=== PATIENT | female | born 2000 | race Caucasian/White ===

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

== ENCOUNTER → 2021-03-28 10:12 | Outpatient (CLI) | payer OTHER, MEDICAID, SELFPAY ==
[2021-03-28 12:48] LABS: Add Manual Diff / Slide Review NO; Basophils Absolute Auto 0 /uL (0-100); Basophils Percent Auto 0.3 % (0-2); Eosinophils Absolute Auto 0 /uL (0-450); Eosinophils Percent Auto 0.3 % (2-4); Hematocrit 37.4 % (36-46); Hemoglobin 12.9 g/dL (12.0-16.0); Lymphocytes Absolute Auto 3100 /uL (1100-4500); Lymphocytes Percent Auto 21.5 % (25-40); Mean Corpuscular HGB Conc 34.4 % (30-36); Mean Corpuscular Hemoglobin 29.3 PG (26-34); Mean Corpuscular Volume 85.3 fL (80-100); Monocytes Absolute Auto 600 /uL (0-900); Monocytes Percent Auto 4.4 % (3-14); Neutrophils Absolute Auto 10600 /uL (1500-7000); Neutrophils Percent Auto 73.5 % (50-75); Platelet Count 250 X10^3/uL (150-400); Red Blood Cell Count 4.39 X10^6/uL (4.0-5.2); Red Cell Distribution Width 12.9 % (11.6-14.8); White Blood Cell Count 14.5 X10^3/uL (4.5-11.0)
[2021-03-28 12:51] LABS: Appearance Urine UA SL CLOUDY; Bilirubin Urine UA NEGATIVE (NEGATIVE); Color Urine UA YELLOW; Glucose Urine UA NEGATIVE (Negative); Ketones Urine UA 3+ (NEGATIVE); Leukocyte Esterase Urine UA 1+ (NEGATIVE); Nitrite Urine UA NEGATIVE (Negative); Occult Blood Urine UA TRACE-INTACT (Negative); Protein Urine UA NEGATIVE (Negative); Urobilinogen Urine UA 0.2 E.U./dL (0.2)
[2021-03-28 13:05] LABS: RBC Urine 1-5/HPF (0-5/HPF); WBC Urine 5-10/HPF (0-5/HPF)
[2021-03-28 13:06] LABS: Amorphous Sediment Urine 1+; Bacteria Urine Many (>30); Mucus Urine 1+ (Negative); Squamous Epithelial Cell Urine 5-10 /HPF (0-5/HPF)
[2021-03-28 15:51] LABS: Hepatitis B Surface Antigen NEGATIVE s/c (NEGATIVE); Rubella Antibody IgG 51.5 IU/mL (>15)
[2021-03-28 16:06] LABS: HIV 1 & 2 Ab/Ag 4th Gen Combo NEGATIVE (NEGATIVE); Hep C Virus Ab w/Reflex Quant NEGATIVE s/c (NEGATIVE)
[2021-03-28 16:11] LABS: Ur Creatinine Normal (Normal); Ur Specific Gravity Normal (Normal); Urine Tetrahydrocannabinol Positive (Negative); Urine pH Normal (Normal)
[2021-03-28 16:12] LABS: UR Morphine/Opiate cutoff 300 Negative (Negative); Urine Amphetamines Negative (Negative); Urine Barbiturates Negative (Negative); Urine Benzodiazepines Negative (Negative); Urine Cocaine Negative (Negative); Urine MDMA Negative (Negative); Urine Methadone Negative (Negative); Urine Methamphetamines Negative (Negative); Urine Oxycodone Negative (Negative); Urine Phencyclidine Negative (Negative); Urine Tricyclic Antidepressant Negative (Negative)
[2021-03-29 04:40] LABS: Varicella IgG Antibody <135 index (Immune >165)
[2021-03-29 06:41] LABS: RPR Screen Non Reactive (Non Reactive)
== END ==
PROVIDERS: Referring Provider Obstetrics & Gynecology; Visit Provider Obstetrics & Gynecology
DX: Z34.80 Encounter for supervision of other normal pregnancy, unspecified trimester (principal); F19.11 Other psychoactive substance abuse, in remission
CPT/HCPCS: 36415; 80055; 80305; 81003; 81015; 86787; 86803; 86850; 86900; 86901; 87086; 87389

== ENCOUNTER → 2021-04-03 12:17 | Outpatient (CLI) | payer OTHER, MEDICAID, SELFPAY ==
[2021-04-03 12:39] LABS: UR Morphine/Opiate cutoff 300 Negative (Negative); Ur Creatinine Normal (Normal); Ur Specific Gravity Normal (Normal); Urine Amphetamines Negative (Negative); Urine Barbiturates Negative (Negative); Urine Benzodiazepines Negative (Negative); Urine Cocaine Negative (Negative); Urine MDMA Negative (Negative); Urine Methadone Negative (Negative); Urine Methamphetamines Negative (Negative); Urine Oxycodone Negative (Negative); Urine Phencyclidine Negative (Negative); Urine Tetrahydrocannabinol Negative (Negative); Urine Tricyclic Antidepressant Negative (Negative); Urine pH Normal (Normal)
[2021-04-03 14:02] LABS: Urine N gonorrhoeae NOT DETECTED
[2021-04-03 14:09] LABS: Urine Chlamydia NOT DETECTED
== END ==
PROVIDERS: Visit Provider Obstetrics & Gynecology
DX: Z34.81 Encounter for supervision of other normal pregnancy, first trimester (principal); Z3A.13 13 weeks gestation of pregnancy
CPT/HCPCS: 80305; 87491; 87591

== ENCOUNTER → 2021-05-01 11:39 | Outpatient (CLI) | payer OTHER, MEDICAID, SELFPAY ==
[2021-05-03 20:38] LABS: AFP, Serum 31.8 ng/mL (.); Estriol, Free 1.47 ng/mL (.); Inhibin A, Dimeric 327.05 pg/mL (.); Inhibin A, MoM 2.41 (.); Maternal Ethnicity Caucasian (.); Maternal Weight 190 lbs (.); Number of Fetuses No (.); OSBR Risk 1 IN 10000 (.); Results Report (.); Test Results *Screen Negative* (.); hCG, Serum 91792 mIU/mL (.)
== END ==
PROVIDERS: Referring Provider Obstetrics & Gynecology; Visit Provider Obstetrics & Gynecology
DX: Z34.82 Encounter for supervision of other normal pregnancy, second trimester (principal); Z3A.17 17 weeks gestation of pregnancy
CPT/HCPCS: 36415; 82105; 82677; 84702; 86336

== ENCOUNTER → 2021-05-29 12:23 | Outpatient (CLI) | payer OTHER, MEDICAID, SELFPAY ==
[2021-05-29 12:51] LABS: UR Morphine/Opiate cutoff 300 Negative (Negative); Ur Creatinine Normal (Normal); Ur Specific Gravity Normal (Normal); Urine Amphetamines Negative (Negative); Urine Barbiturates Negative (Negative); Urine Benzodiazepines Negative (Negative); Urine Cocaine Negative (Negative); Urine MDMA Negative (Negative); Urine Methadone Negative (Negative); Urine Methamphetamines Negative (Negative); Urine Oxycodone Negative (Negative); Urine Phencyclidine Negative (Negative); Urine Tetrahydrocannabinol Negative (Negative); Urine Tricyclic Antidepressant Negative (Negative); Urine pH Normal (Normal)
== END ==
PROVIDERS: Visit Provider Obstetrics & Gynecology
DX: F11.11 Opioid abuse, in remission (principal); Z87.898 Personal history of other specified conditions; Z34.82 Encounter for supervision of other normal pregnancy, second trimester
CPT/HCPCS: 80305

== ENCOUNTER → 2021-06-26 11:20 | Outpatient (CLI) | payer OTHER, MEDICAID, SELFPAY ==
[2021-06-26 14:30] LABS: Hematocrit 31.6 % (36-46); Hemoglobin 10.9 g/dL (12.0-16.0)
[2021-06-26 15:36] LABS: GTT (PREG) 1 Hour PP 50gm Dose 113 mg/dL (76-139)
== END ==
PROVIDERS: Referring Provider Obstetrics & Gynecology; Visit Provider Obstetrics & Gynecology
DX: Z34.02 Encounter for supervision of normal first pregnancy, second trimester (principal); Z3A.25 25 weeks gestation of pregnancy
CPT/HCPCS: 36415; 82950; 85014; 85018

== ENCOUNTER 2021-07-05 15:16 | Observation (INO) | payer OTHER, MEDICAID, SELFPAY ==
[2021-07-05 15:48] VITALS: BP 127/69; PULSE 114; RESP 16; TEMP 36.4; O2SAT 97; BMI 35.3
--- NOTE | 2021-07-05 16:03 | PC.NURSE ---
Pt normotensive 120s/ HR 114. Urine obtained. [facility] RN auscultated FHR x 2 min--150's accels noted. No decels. Pt reports + movement, denies leaking of fluid or vaginal bleeding. Lab to draw.
[2021-07-05 16:49] LABS: Appearance Urine UA CLOUDY; Bilirubin Urine UA NEGATIVE (NEGATIVE); Color Urine UA YELLOW; Glucose Urine UA NEGATIVE (Negative); Ketones Urine UA TRACE (NEGATIVE); Leukocyte Esterase Urine UA 3+ (NEGATIVE); Nitrite Urine UA NEGATIVE (Negative); Occult Blood Urine UA 1+ (Negative); Protein Urine UA TRACE (Negative); Specific Gravity Urine UA 1.015 (1.000-1.035); Urobilinogen Urine UA 0.2 E.U./dL (0.2)
[2021-07-05 16:51] LABS: pH Urine UA 7.5 (4.5-8.0)
[2021-07-05 17:06] LABS: Squamous Epithelial Cell Urine 5-10 /HPF (0-5/HPF)
[2021-07-05 17:07] LABS: Bacteria Urine Many (>30); Culture Indicated Urine Specimen Cultured; RBC Urine None Seen (0-5/HPF); WBC Urine 5-10/HPF (0-5/HPF)
[2021-07-05 17:33] LABS: Add Manual Diff / Slide Review NO; Basophils Absolute Auto 0 /uL (0-100); Basophils Percent Auto 0.3 % (0-2); Eosinophils Absolute Auto 100 /uL (0-450); Eosinophils Percent Auto 0.4 % (2-4); Hematocrit 32.9 % (36-46); Hemoglobin 11.3 g/dL (12.0-16.0); Lymphocytes Absolute Auto 2600 /uL (1100-4500); Lymphocytes Percent Auto 16.4 % (25-40); Mean Corpuscular HGB Conc 34.4 % (30-36); Mean Corpuscular Hemoglobin 30.4 PG (26-34); Mean Corpuscular Volume 88.3 fL (80-100); Monocytes Absolute Auto 800 /uL (0-900); Monocytes Percent Auto 5.1 % (3-14); Neutrophils Absolute Auto 12400 /uL (1500-7000); Neutrophils Percent Auto 77.8 % (50-75); Platelet Count 281 X10^3/uL (150-400); Red Blood Cell Count 3.73 X10^6/uL (4.0-5.2); Red Cell Distribution Width 13.1 % (11.6-14.8); White Blood Cell Count 15.9 X10^3/uL (4.5-11.0)
[2021-07-05 17:40] LABS: Alanine Aminotransferase 37 IU/L (<35); Albumin 3.9 g/dL (3.5-5.0); Albumin Globulin Ratio 1.2 (1.0-2.8); Alkaline Phosphatase 66 U/L (38-126); Aspartate Aminotransferase 35 IU/L (14-36); BUN Creatinine Ratio 13.1 (6-22); Bilirubin Total 0.3 mg/dL (0.2-1.3); Blood Urea Nitrogen 8 mg/dL (7-17); Calcium 9.5 mg/dL (8.4-10.2); Carbon Dioxide 24 mmol/L (22-32); Chloride 104 mmol/L (98-107); Estimated Glomerular Filt Rate > 60 mL/min (>60); Globulin 3.2 g/dL (1.7-4.1); Glucose 104 mg/dL (70-100); HEMOLYSIS < 15 (0-50); Potassium 3.9 mmol/L (3.4-5.1); Sodium 136 mmol/L (137-145); Total Protein 7.1 g/dL (6.3-8.2); Uric Acid 3.8 mg/dL (2.5-6.2)
[2021-07-05 17:44] LABS: Creatinine Urine Random 68.7 mg/dL; Protein (Total) Urine Random 16 mg/dL (0-12); Protein Creatinine Ratio Urine 0.23 GRAM/24H
--- NOTE | 2021-07-05 17:46 | PC.NURSE ---
[facility] in ED to repeat US. NAD. tolerating well
--- NOTE | 2021-07-05 18:45 | PC.NURSE ---
Per Yuni Zapata RNC, [facility], EFM placed at 1736 and removed at 1836. Baseline fhr 150 with moderate variability, accels up to 170. Appropriate for EGA and reactive NST. Telephone call to Dr. Burns, updated on fhr tracing. Note written by Aram Zapata, RNC
--- NOTE | 2021-07-05 19:52 | P.TNLD_ITS ---
Visit Information Visit Information Date of evaluation: 07/05/21 Primary OB Provider: Lon Whittington On-call OB Provider: Bambi Burns Reason for Evaluation: Yes other Comments/Additional reasons for admission: This patient is a 21 year at 26 weeks and 5 days gestation with complaints of headache the last 3 days. She feels she is hydrating well. She has taken 1 regular strength Tylenol without improvement in her headache. She has had some lower extremity edema but denies vision changes. She had some right-sided pain which has now resolved. Denies contractions, leaking or bleeding and reports good movement. Denies pain with urination or fevers. Vital Signs Vital Signs: Vital Signs - 8 hr 07/05/21 15:48 Temperature 97.5 F L Pulse Rate 114 H Respiratory Rate 16 Blood Pressure 127/69 Pulse Oximetry 97 PFSH Medical History Anemia Anxiety Depression Gonorrhea (~2020) Hypertension (~2017) Manic-depression Peripheral neuropathy (~2017) Substance abuse (~2015) Vision disorder Surgical History Anesthesia History of eye surgery Family History Father Diabetes mellitus Hypertension Mental health problem Mother Mental health problem Brother Mental health problem Sister Mental health problem Grandfather Cancer Grandmother Diabetes mellitus Hypertension Hyperlipidemia Social History marital status: unmarried,single details: father will be involved number of children: 0 household members: none housing: other (snf type apartment - had been homeless) pets and animals: No education level: other (to 11th grade) occupational status: unemployed seatbelt use: always water heater temp set < 120 deg: Yes working smoke detector in home: Yes fire extinguisher in home: Yes carbon monox detector in home: Yes firearms in home: No do you feel safe at home: Yes Smoking Status: Former smoker quit status: quit date established (04/17/21) second hand exposure: Yes (will try to avoid this in the future) alcohol intake: former substance use type: marijuana (using now), crack/cocaine (non since ), heroin (not since ), hallucinogens, opiates (2020 - before test), methamphetamine (2019 - 1 time since ), prescription drug and other (Used anything she could get before rehab, has had a few times since that she has used, No IV use) during the past year weight has: other (Up and down, was 115 lbs start of 2020) well-balanced diet: daily or most days daily servings fruits/ve-4 caffeine: No Type(s) of exercise: walking Exam Vital Signs (past 8 hours): - 07/05/21 15:48 Temperature 97.5 F L Pulse Rate 114 H Respiratory Rate 16 Blood Pressure 127/69 Pulse Oximetry 97 Oxygen Delivery Method Room Air Const General: cooperative, healthy appearing and comfortable HENMT Head: normal to inspection Resp Effort & Inspection: normal respiratory effort Back/Spine/Pelvis Other: No CVA tenderness Extrem General: normal to inspection and edema (Trace edema bilaterally) Objective Labs Result Diagrams: 07/05/21 16:17 07/05/21 16:17 Labs: Laboratory Results - last 24 hr 07/05/21 07/05/21 07/05/21 16:01 16:01 16:17 WBC 15.9 H RBC 3.73 L Hgb 11.3 L Hct 32.9 L MCV 88.3 MCH 30.4 MCHC 34.4 RDW 13.1 Plt Count 281 Neut % (Auto) 77.8 H Lymph % (Auto) 16.4 L [place] % (Auto) 5.1 Eos % (Auto) 0.4 L Baso % (Auto) 0.3 Neut # (Auto) 37229 H Lymph # (Auto) 2600 [place] # (Auto) 800 Eos # (Auto) 100 Baso # (Auto) 0 Sodium Potassium Chloride Carbon Dioxide BUN Creatinine Estimated GFR BUN/Creatinine Ratio Glucose Uric Acid Calcium Total Bilirubin AST ALT Alkaline Phosphatase Total Protein Albumin Globulin Albumin/Globulin Ratio Urine Color Yellow Urine Appearance Cloudy Urine pH 7.5 Ur Specific [place] 1.015 Urine Protein Trace H Urine Glucose (UA) Negative Urine Ketones Trace H Urine Occult Blood 1+ H Urine Nitrate Negative Urine Bilirubin Negative Urine Urobilinogen 0.2 Ur Leukocyte Esterase 3+ H Urine RBC None seen Urine WBC 5-10/hpf H Ur Squamous Epith Cells 5-10 /hpf H Urine Bacteria Many (>30) H Ur Culture Indicated? Specimen cultured U Random Total Protein 16 H Urine Creatinine 68.7 Protein/Creatinin Ratio 0.23 07/05/21 07/05/21 16:17 16:17 WBC RBC Hgb Hct MCV MCH MCHC RDW Plt Count Neut % (Auto) Lymph % (Auto) [place] % (Auto) Eos % (Auto) Baso % (Auto) Neut # (Auto) Lymph # (Auto) [place] # (Auto) Eos # (Auto) Baso # (Auto) Sodium 136 L Potassium 3.9 Chloride 104 Carbon Dioxide 24 BUN 8 Creatinine 0.61 Estimated GFR > 60 BUN/Creatinine Ratio 13.1 Glucose 104 H Uric Acid 3.8 Calcium 9.5 Total Bilirubin 0.3 AST 35 ALT 37 H Alkaline Phosphatase 66 Total Protein 7.1 Albumin 3.9 Globulin 3.2 Albumin/Globulin Ratio 1.2 Urine Color Urine Appearance Urine pH Ur Specific [place] Urine Protein Urine Glucose (UA) Urine Ketones Urine Occult Blood Urine Nitrate Urine Bilirubin Urine Urobilinogen Ur Leukocyte Esterase Urine RBC Urine WBC Ur Squamous Epith Cells Urine Bacteria Ur Culture Indicated? U Random Total Protein Urine Creatinine Protein/Creatinin Ratio Evaluation Evaluation Baseline heart rate: 145 Variability: Moderate (11-25) monitor accelerations: Present Monitor Decelerations: Absent Category of Tracing: Reactive Diagnosis, Plan/Disposition Final Diagnosis (1) 26 weeks gestation of : Status: Acute (2) Acute UTI: Status: Acute (3) Headache: Status: Acute Plan/Disposition Plan: 21-year-old at 26 weeks and 5 days gestation with complaints of headache and concern for preeclampsia. Blood pressure was normal upon arrival. Patient was seen and evaluated in the ER because the center was full. Preeclampsia labs normal. Urine was concerning for a UTI though patient denied urinary symptoms, fever or flank pain. She was given a dose of Keflex in the ER as well as Tylenol for her headache. NST reactive. She has follow-up scheduled in clinic but was advised to return as needed. Urine culture is pending. OB Disposition: home
[2021-07-05] MEDS: cephALEXin 250 MG CAPSULE 500 MG PO (20:06)
[2021-07-05] MEDS: ACETAMINOPHEN 325 MG TABLET 975 MG PO (20:06)
[2021-07-05 20:07] VITALS: BP 134/75; PULSE 99; RESP 16; O2SAT 97
== END 2021-07-05 20:11 | disposition home or self-care (01) ==
LOC: ED 15:19 → AC 15:23
PROVIDERS: Emergency Medicine; Admitting Provider Obstetrics & Gynecology; Emergency Provider Family Medicine; Referring Provider Obstetrics & Gynecology; Visit Provider Obstetrics & Gynecology
DX: R51.9 Headache, unspecified (principal); O23.42 Unspecified infection of urinary tract in pregnancy, second trimester; Z3A.26 26 weeks gestation of pregnancy; O99.322 Drug use complicating pregnancy, second trimester; F12.90 Cannabis use, unspecified, uncomplicated
CPT/HCPCS: 80053; 81001; 82570; 84156; 84550; 85025; 87086; 99282; 99283; G0378

== ENCOUNTER → 2021-08-14 15:30 | Outpatient (CLI) | payer OTHER, MEDICAID, SELFPAY | PROVIDERS: Visit Provider Obstetrics & Gynecology | DX: O23.10 Infections of bladder in pregnancy, unspecified trimester (principal); Z3A.32 32 weeks gestation of pregnancy | CPT/HCPCS: 87086 ==

== ENCOUNTER → 2021-08-21 17:28 | Outpatient (CLI) | payer OTHER, MEDICAID, SELFPAY ==
[2021-08-21 18:53] LABS: Appearance Urine UA CLOUDY; Bilirubin Urine UA NEGATIVE (NEGATIVE); Color Urine UA YELLOW; Glucose Urine UA NEGATIVE (Negative); Ketones Urine UA 3+ (NEGATIVE); Leukocyte Esterase Urine UA 3+ (NEGATIVE); Nitrite Urine UA NEGATIVE (Negative); Occult Blood Urine UA 2+ (Negative); Protein Urine UA 1+ (Negative); Urobilinogen Urine UA 0.2 E.U./dL (0.2)
[2021-08-21 18:54] LABS: pH Urine UA 6.5 (4.5-8.0)
[2021-08-21 18:59] LABS: Calcium Oxalate Crystals Urine Moderate; RBC Urine 1-5/HPF (0-5/HPF); Squamous Epithelial Cell Urine 1-5 /HPF (0-5/HPF); WBC Urine >100/HPF (0-5/HPF)
[2021-08-21 19:00] LABS: Amorphous Sediment Urine 1+; Bacteria Urine Many (>30); Culture Indicated Urine Specimen Cultured; Mucus Urine 2+ (Negative)
== END ==
PROVIDERS: Referring Provider Obstetrics & Gynecology; Visit Provider Obstetrics & Gynecology
DX: N39.0 Urinary tract infection, site not specified (principal)
CPT/HCPCS: 81003; 81015; 87077; 87086; 87186

== ENCOUNTER 2021-08-23 18:23 | Observation (INO) | payer OTHER, MEDICAID, SELFPAY ==
[2021-08-23 19:09] LABS: Bilirubin Urine UA NEGATIVE (NEGATIVE); Color Urine UA YELLOW; Glucose Urine UA NEGATIVE (Negative); Ketones Urine UA 1+ (NEGATIVE); Leukocyte Esterase Urine UA 2+ (NEGATIVE); Nitrite Urine UA POSITIVE (Negative); Occult Blood Urine UA 3+ (Negative); Protein Urine UA 2+ (Negative); Urobilinogen Urine UA 0.2 E.U./dL (0.2)
[2021-08-23 19:30] LABS: Amorphous Sediment Urine 1+; Appearance Urine UA CLOUDY; RBC Urine 5-10/HPF (0-5/HPF); Squamous Epithelial Cell Urine 0-1 /HPF (0-5/HPF); WBC Urine >100/HPF (0-5/HPF); pH Urine UA 6.5 (4.5-8.0)
[2021-08-23 19:31] LABS: Bacteria Urine Many (>30); Culture Indicated Urine Specimen Cultured; Mucus Urine 2+ (Negative)
[2021-08-23] MEDS: LACTATED RINGERS 1,000 ML 500 ML IV (19:35)
--- NOTE | 2021-08-23 19:45 | PM.HP.1 ---
History of Present Illness History of Present Illness Date Patient Seen: 08/23/21 Time Patient Seen: 19:30 Date of Onset of Symptoms: 08/09/21 Chief complaint: Eval of Labor Patient History Medical History Anemia Anxiety Bilateral shoulder pain Cervical somatic dysfunction Chronic thoracic back pain Depression Gonorrhea (~2020) Hypertension (~2017) Low back pain during in third trimester Lumbar region somatic dysfunction Manic-depression Pelvic somatic dysfunction Peripheral neuropathy (~2017) Pes planus of both feet Sacral region somatic dysfunction Segmental and somatic dysfunction of abdomen and other regions Substance abuse (~2015) Thoracic region somatic dysfunction Upper extremity somatic dysfunction Vision disorder Surgical History Anesthesia History of eye surgery Family & Social History Family History Father Diabetes mellitus Hypertension Mental health problem Mother Mental health problem Brother Mental health problem Sister Mental health problem Grandfather Cancer Grandmother Diabetes mellitus Hypertension Hyperlipidemia Social History: household members none Tobacco & Substance use: Smoking Status Former smoker alcohol intake former alcohol intake frequency 0-2 drinks per day Substance Use Type marijuana Meds Home Medications and Allergies Home Medications Medication Instructions Recorded Confirmed Type clindamycin phosphate 1 % topical 1 applic topical QPM #40 mL 09/09/17 08/23/21 Rx gel, once daily (Clindagel) buspirone 5 mg tablet 5 mg PO BID #60 tabs 07/08/18 08/23/21 Rx vitamins no.42-folate tab PO 03/25/21 06/26/21 History comb.no.6 1 mg chewable tablet cephalexin 500 mg tablet 500 mg PO TID #21 tabs 07/05/21 08/23/21 Rx nitrofurantoin 100 mg PO Q12H 7 days #14 caps 08/23/21 08/23/21 Rx monohydrate/macrocrystals 100 mg capsule (Macrobid) Allergies Allergy/AdvReac Type Severity Reaction Status Date / Time No Known Drug Allergies Allergy Verified 06/26/21 10:34 Review of Systems Review of Systems ROS: Yes All systems reviewed with the patient and are negative except as otherwise documented Genitourinary Genitourinary: Reports difficulty voiding (- feels like not emptying completely) Musculoskeletal Musculoskeletal: Reports as per HPI (moderate right CVAT, mild left CVAT) Exam Const General: cooperative, healthy appearing and well developed Nutritional Appearance: overweight Orientation: alert and oriented x3 HENMT Head: normal to inspection, normocephalic and atraumatic Ears: hearing grossly normal bilaterally Nose: external nose normal Face and sinus: normal facial exam Resp Effort & Inspection: normal respiratory effort and able to speak in complete sentences Cardio Rate: regular rate Rhythm: regular rhythm GI Palpation: soft, tender (suprapubic) and other General: CVA tenderness (right side moderate (pt rates 10/10 with tapping; 5/10 at rest)) Skin General: no rashes or lesions noted Objective Labs Result Diagrams: 08/23/21 19:25 Labs: Laboratory Results - last 24 hr 08/23/21 18:40 Urine Color Yellow Urine Appearance Cloudy Urine pH 6.5 Ur Specific [place] 1.020 Urine Protein 2+ H Urine Glucose (UA) Negative Urine Ketones 1+ H Urine Occult Blood 3+ H Urine Nitrate Positive H Urine Bilirubin Negative Urine Urobilinogen 0.2 Ur Leukocyte Esterase 2+ H Urine RBC 5-10/hpf H Urine WBC >100/hpf H Ur Squamous Epith Cells 0-1 /hpf Amorphous Sediment 1+ Urine Bacteria Many (>30) H Urine Mucus 2+ H Ur Culture Indicated? Specimen cultured Assessment & Plan Assessment and plan (1) Pyelonephritis affecting in third trimester: Status: Acute (2) : Qualifiers: Weeks of gestation: 33 weeks Qualified Code(s): Z3A.33 - 33 weeks gestation of Status: Acute Plan admit, iv hydration, iv abx, covid testing Time Spent With Patient Critical Care time: I spent a total of [] minutes of critical care time on this patient's care today; this time is exclusive of procedural time.
[2021-08-23 19:46] LABS: Add Manual Diff / Slide Review NO; Basophils Absolute Auto 200 /uL (0-100); Basophils Percent Auto 1.2 % (0-2); Eosinophils Absolute Auto 0 /uL (0-450); Eosinophils Percent Auto 0.3 % (2-4); Hematocrit 33.5 % (36-46); Hemoglobin 11.5 g/dL (12.0-16.0); Lymphocytes Absolute Auto 2300 /uL (1100-4500); Lymphocytes Percent Auto 13.8 % (25-40); Mean Corpuscular HGB Conc 34.3 % (30-36); Mean Corpuscular Hemoglobin 29.6 PG (26-34); Mean Corpuscular Volume 86.4 fL (80-100); Monocytes Absolute Auto 1100 /uL (0-900); Monocytes Percent Auto 6.7 % (3-14); Neutrophils Absolute Auto 13100 /uL (1500-7000); Platelet Count 225 X10^3/uL (150-400); Red Blood Cell Count 3.88 X10^6/uL (4.0-5.2); Red Cell Distribution Width 13.4 % (11.6-14.8); White Blood Cell Count 16.8 X10^3/uL (4.5-11.0)
[2021-08-23 19:46] LABS: UR Morphine/Opiate cutoff 300 Negative (Negative); Ur Creatinine Normal (Normal); Ur Specific Gravity Normal (Normal); Urine Amphetamines Negative (Negative); Urine Barbiturates Negative (Negative); Urine Benzodiazepines Negative (Negative); Urine Cocaine Negative (Negative); Urine MDMA Negative (Negative); Urine Methadone Negative (Negative); Urine Methamphetamines Negative (Negative); Urine Oxycodone Negative (Negative); Urine Phencyclidine Negative (Negative); Urine Tetrahydrocannabinol Negative (Negative); Urine Tricyclic Antidepressant Negative (Negative); Urine pH Normal (Normal)
[2021-08-23 20:15] VITALS: BP 128/60
[2021-08-23] MEDS: CEFAZOLIN 2 GM/20 ML SYRINGE IV (20:47)
[2021-08-23] MEDS: ACETAMINOPHEN 325 MG TABLET 650 MG PO (21:10)
[2021-08-23 21:25] LABS: COVID19 -Nasal RAPID Negative (Negative)
[2021-08-24] MEDS: LACTATED RINGERS 1,000 ML 100 ML IV ×2 (00:19→10:06)
[2021-08-24] MEDS: CEFAZOLIN 2 GM/20 ML SYRINGE IV ×3 (04:39→20:07)
--- NOTE | 2021-08-24 06:41 | P.PN_ITS ---
Subjective Subjective Date Patient Seen: 08/24/21 Time Patient Seen: 06:42 Interval history: pyelo; received two doses Ancef IV Exam Vital Signs (past 8 hours): 97.8, 111/72 Narrative Exam Narrative: slept well, states back pain is significantly decreased (left side now hurting more than right) Const General: cooperative General: CVA tenderness (mild right and left CVAT) Objective Labs Result Diagrams: 08/23/21 19:25 Labs: Laboratory Results - last 24 hr 08/23/21 08/23/21 08/23/21 17:49 18:40 19:25 WBC 16.8 H RBC 3.88 L Hgb 11.5 L Hct 33.5 L MCV 86.4 MCH 29.6 MCHC 34.3 RDW 13.4 Plt Count 225 Neut % (Auto) 78.0 H Lymph % (Auto) 13.8 L [place] % (Auto) 6.7 Eos % (Auto) 0.3 L Baso % (Auto) 1.2 Neut # (Auto) 28744 H Lymph # (Auto) 2300 [place] # (Auto) 1100 H Eos # (Auto) 0 Baso # (Auto) 200 H Urine Color Yellow Urine Appearance Cloudy Urine pH 6.5 Ur Specific [place] 1.020 Urine Protein 2+ H Urine Glucose (UA) Negative Urine Ketones 1+ H Urine Occult Blood 3+ H Urine Nitrate Positive H Urine Bilirubin Negative Urine Urobilinogen 0.2 Ur Leukocyte Esterase 2+ H Urine RBC 5-10/hpf H Urine WBC >100/hpf H Ur Squamous Epith Cells 0-1 /hpf Amorphous Sediment 1+ Urine Bacteria Many (>30) H Urine Mucus 2+ H Ur Culture Indicated? Specimen cultured U Opiates 300ng/mL cut Negative Ur Oxycodone Screen Negative Urine Methadone Screen Negative Ur Barbiturates Screen Negative U Tricyclic Antidepress Negative Ur Phencyclidine Scrn Negative Ur Amphetamines Screen Negative U Methamphetamines Scrn Negative Ur MDMA Scrn (Ecstasy) Negative U Benzodiazepines Scrn Negative Urine Cocaine Screen Negative U Marijuana (THC) Screen Negative SARS-CoV-2 (PCR) 08/23/21 21:08 WBC RBC Hgb Hct MCV MCH MCHC RDW Plt Count Neut % (Auto) Lymph % (Auto) [place] % (Auto) Eos % (Auto) Baso % (Auto) Neut # (Auto) Lymph # (Auto) [place] # (Auto) Eos # (Auto) Baso # (Auto) Urine Color Urine Appearance Urine pH Ur Specific [place] Urine Protein Urine Glucose (UA) Urine Ketones Urine Occult Blood Urine Nitrate Urine Bilirubin Urine Urobilinogen Ur Leukocyte Esterase Urine RBC Urine WBC Ur Squamous Epith Cells Amorphous Sediment Urine Bacteria Urine Mucus Ur Culture Indicated? U Opiates 300ng/mL cut Ur Oxycodone Screen Urine Methadone Screen Ur Barbiturates Screen U Tricyclic Antidepress Ur Phencyclidine Scrn Ur Amphetamines Screen U Methamphetamines Scrn Ur MDMA Scrn (Ecstasy) U Benzodiazepines Scrn Urine Cocaine Screen U Marijuana (THC) Screen SARS-CoV-2 (PCR) Negative [facility] Medical History Anemia Anxiety Bilateral shoulder pain Cervical somatic dysfunction Chronic thoracic back pain Depression Gonorrhea (~2020) Hypertension (~2017) Low back pain during in third trimester Lumbar region somatic dysfunction Manic-depression Pelvic somatic dysfunction Peripheral neuropathy (~2017) Pes planus of both feet Sacral region somatic dysfunction Segmental and somatic dysfunction of abdomen and other regions Substance abuse (~2015) Thoracic region somatic dysfunction Upper extremity somatic dysfunction Vision disorder Surgical History Anesthesia History of eye surgery Family History Father Diabetes mellitus Hypertension Mental health problem Mother Mental health problem Brother Mental health problem Sister Mental health problem Grandfather Cancer Grandmother Diabetes mellitus Hypertension Hyperlipidemia Social History marital status: unmarried,single details: father will be involved number of children: 0 household members: none housing: other (custodial type apartment - had been homeless) pets and animals: No education level: other (to 11th grade) occupational status: unemployed seatbelt use: always water heater temp set < 120 deg: Yes working smoke detector in home: Yes fire extinguisher in home: Yes carbon monox detector in home: Yes firearms in home: No do you feel safe at home: Yes Smoking Status: Never smoker quit status: quit date established (04/17/21) second hand exposure: Yes (will try to avoid this in the future) alcohol intake: former substance use type: marijuana (using now), crack/cocaine (non since ), heroin (not since ), hallucinogens, opiates (2020 - before test), met hamphetamine (2019 - time since ), prescription drug and other (Used anything she could get before rehab, has had a few times since that she has used, No IV use) during the past year weight has: other (Up and down, was 115 lbs start of 2020) well-balanced diet: daily or most days daily servings fruits/ve-4 caffeine: No Type(s) of exercise: walking Assessment & Plan Assessment & Plan narrative: pyelo - continue iv abx, recheck WBC - NST q shift Time Spent With Patient Time with patient: less than 30 minutes Critical Care time: I spent a total of [] minutes of critical care time on this patient's care today; this time is exclusive of procedural time.
[2021-08-24 07:08] LABS: Add Manual Diff / Slide Review NO; Basophils Absolute Auto 100 /uL (0-100); Basophils Percent Auto 0.6 % (0-2); Eosinophils Absolute Auto 100 /uL (0-450); Eosinophils Percent Auto 0.7 % (2-4); Hematocrit 30.7 % (36-46); Hemoglobin 10.5 g/dL (12.0-16.0); Lymphocytes Absolute Auto 2600 /uL (1100-4500); Lymphocytes Percent Auto 19.5 % (25-40); Mean Corpuscular HGB Conc 34.3 % (30-36); Mean Corpuscular Hemoglobin 29.8 PG (26-34); Mean Corpuscular Volume 86.9 fL (80-100); Monocytes Absolute Auto 900 /uL (0-900); Monocytes Percent Auto 6.6 % (3-14); Neutrophils Absolute Auto 9700 /uL (1500-7000); Neutrophils Percent Auto 72.6 % (50-75); Platelet Count 190 X10^3/uL (150-400); Red Blood Cell Count 3.53 X10^6/uL (4.0-5.2); Red Cell Distribution Width 13.4 % (11.6-14.8); White Blood Cell Count 13.3 X10^3/uL (4.5-11.0)
[2021-08-24] MEDS: ACETAMINOPHEN 325 MG TABLET 650 MG PO ×2 (08:10→18:55)
--- NOTE | 2021-08-24 15:37 | P.DS_ITS ---
History of Present Illness History of Present Illness Chief complaint: Eval of Labor Discharge Providers Provider Date of admission: 08/23/21 18:23 Discharge Date: 08/24/21 Discharge provider: Izabel Tomlin MD Summary Hospital Course Discharge Diagnosis: pyelonephritis Hospital Course: Admitted 08/23 with pyelo. Urine culture pending. Symptoms improved on IV ancef with decrease in WBC and resolution of CVAT NST reactive on admission and today Status at Discharge Overall status at discharge: patient is back to baseline Time Spent with Patient Time spent: Less than 30 minutes Exam Vital Signs (past 8 hours): 97.5, 104/67, 101 Narrative Exam Narrative: NO CVAT Mild lumbar tenderness to palpation Objective Labs Result Diagrams: 08/24/21 06:56 Labs: Laboratory Results - last 24 hr 08/23/21 08/23/21 08/23/21 17:49 18:40 19:25 WBC 16.8 H RBC 3.88 L Hgb 11.5 L Hct 33.5 L MCV 86.4 MCH 29.6 MCHC 34.3 RDW 13.4 Plt Count 225 Neut % (Auto) 78.0 H Lymph % (Auto) 13.8 L [place] % (Auto) 6.7 Eos % (Auto) 0.3 L Baso % (Auto) 1.2 Neut # (Auto) 14040 H Lymph # (Auto) 2300 [place] # (Auto) 1100 H Eos # (Auto) 0 Baso # (Auto) 200 H Urine Color Yellow Urine Appearance Cloudy Urine pH 6.5 Ur Specific [place] 1.020 Urine Protein 2+ H Urine Glucose (UA) Negative Urine Ketones 1+ H Urine Occult Blood 3+ H Urine Nitrate Positive H Urine Bilirubin Negative Urine Urobilinogen 0.2 Ur Leukocyte Esterase 2+ H Urine RBC 5-10/hpf H Urine WBC >100/hpf H Ur Squamous Epith Cells 0-1 /hpf Amorphous Sediment 1+ Urine Bacteria Many (>30) H Urine Mucus 2+ H Ur Culture Indicated? Specimen cultured U Opiates 300ng/mL cut Negative Ur Oxycodone Screen Negative Urine Methadone Screen Negative Ur Barbiturates Screen Negative U Tricyclic Antidepress Negative Ur Phencyclidine Scrn Negative Ur Amphetamines Screen Negative U Methamphetamines Scrn Negative Ur MDMA Scrn (Ecstasy) Negative U Benzodiazepines Scrn Negative Urine Cocaine Screen Negative U Marijuana (THC) Screen Negative SARS-CoV-2 (PCR) 08/23/21 08/24/21 21:08 06:56 WBC 13.3 H RBC 3.53 L Hgb 10.5 L Hct 30.7 L MCV 86.9 MCH 29.8 MCHC 34.3 RDW 13.4 Plt Count 190 Neut % (Auto) 72.6 Lymph % (Auto) 19.5 L [place] % (Auto) 6.6 Eos % (Auto) 0.7 L Baso % (Auto) 0.6 Neut # (Auto) 9700 H Lymph # (Auto) 2600 [place] # (Auto) 900 Eos # (Auto) 100 Baso # (Auto) 100 Urine Color Urine Appearance Urine pH Ur Specific [place] Urine Protein Urine Glucose (UA) Urine Ketones Urine Occult Blood Urine Nitrate Urine Bilirubin Urine Urobilinogen Ur Leukocyte Esterase Urine RBC Urine WBC Ur Squamous Epith Cells Amorphous Sediment Urine Bacteria Urine Mucus Ur Culture Indicated? U Opiates 300ng/mL cut Ur Oxycodone Screen Urine Methadone Screen Ur Barbiturates Screen U Tricyclic Antidepress Ur Phencyclidine Scrn Ur Amphetamines Screen U Methamphetamines Scrn Ur MDMA Scrn (Ecstasy) U Benzodiazepines Scrn Urine Cocaine Screen U Marijuana (THC) Screen SARS-CoV-2 (PCR) Negative [facility] Medical History Anemia Anxiety Bilateral shoulder pain Cervical somatic dysfunction Chronic thoracic back pain Depression Gonorrhea (~2020) Hypertension (~2017) Low back pain during in third trimester Lumbar region somatic dysfunction Manic-depression Pelvic somatic dysfunction Peripheral neuropathy (~2017) Pes planus of both feet Sacral region somatic dysfunction Segmental and somatic dysfunction of abdomen and other regions Substance abuse (~2015) Thoracic region somatic dysfunction Upper extremity somatic dysfunction Vision disorder Surgical History Anesthesia History of eye surgery Family History Father Diabetes mellitus Hypertension Mental health problem Mother Mental health problem Brother Mental health problem Sister Mental health problem Grandfather Cancer Grandmother Diabetes mellitus Hypertension Hyperlipidemia Social History marital status: unmarried,single details: father will be involved number of children: 0 household members: none housing: other (detention type apartment - had been homeless) pets and animals: No education level: other (to 11th grade) occupational status: unemployed seatbelt use: always water heater temp set < 120 deg: Yes working smoke detector in home: Yes fire extinguisher in home: Yes carbon monox detector in home: Yes firearms in home: No do you feel safe at home: Yes Smoking Status: Never smoker quit status: quit date established (04/17/21) second hand exposure: Yes (will try to avoid this in the future) alcohol intake: former substance use type: marijuana (using now), crack/cocaine (non since ), heroin (not since ), hallucinogens, opiates (2020 - before test), methamphetamine (2018 - time since ), prescription drug and other (Used anything she could get before rehab, has had a few times since that she has used, No IV use) during the past year weight has: other (Up and down, was 115 lbs start of 2020) well-balanced diet: daily or most days daily servings fruits/ve-4 caffeine: No Type(s) of exercise: walking Discharge Assessment & Plan Assessment and Plan Assessment: pyelonephritis (right side predominant) Plan of Treatment: continue Macrobid for at least 5 days Drink more fluid daily FU in clinic in four days - sooner prn Discharge Plan Discharge Plan Patient Disposition: Home Provider Discharge Comment: improved Discharge orders & Medications Prescriptions: Continued vit no.42-folate no.6 1 mg tablet,chewable See Rx Instructions .ROUTE .COMPLEX Rx Instructions: Take as prescribed. nitrofurantoin monohyd/m-cryst [Macrobid] 100 mg capsule 100 mg PO Q12H 7 Days Qty: 14 0RF Rx Instructions: must administer with a meal/food Discontinued clindamycin phosphate [Clindagel] 1 % gel, once daily 1 applic TOP QPM Qty: 40 12RF Hold Instructions: new to area cephalexin 500 mg tablet 500 mg PO TID Qty: 21 0RF Follow up/Referrals: Lon Whittington MD [Physician] - (has OB appt on 08/28 - sooner prn) Diet/Activity/Treatments Diet: Diet as Tolerated Activity: continue with adequate hydration - one cup per hour when awake Discharge Data Attending Provider: Lon Whittington
[2021-08-24 20:20] VITALS: BP 99/67; PULSE 102; RESP 18; TEMP 36.8; O2SAT 99
== END 2021-08-24 20:26 | disposition home or self-care (01) ==
PROVIDERS: Obstetrics & Gynecology; Admitting Provider Obstetrics & Gynecology; Referring Provider Obstetrics & Gynecology; Visit Provider Obstetrics & Gynecology
DX: O23.03 Infections of kidney in pregnancy, third trimester (principal); N12 Tubulo-interstitial nephritis, not specified as acute or chronic; Z3A.33 33 weeks gestation of pregnancy; Z20.822 Contact with and (suspected) exposure to COVID-19
CPT/HCPCS: 36415; 59025; 59050; 80305; 81001; 85025; 87077; 87086; 87186; 87635; 96360; 96361; C9803; G0378; G0379; J0690

== ENCOUNTER 2021-08-28 20:14 | Outpatient (CLI) | payer OTHER, MEDICAID, SELFPAY | END 2021-08-28 21:15 | disposition home or self-care (01) | LOC: OB 08-29 14:26 | PROVIDERS: Referring Provider Obstetrics & Gynecology; Visit Provider Obstetrics & Gynecology | DX: Z03.71 Encounter for suspected problem with amniotic cavity and membrane ruled out (principal); Z3A.34 34 weeks gestation of pregnancy | CPT/HCPCS: 59025; 84112; G0378; G0379 ==

== ENCOUNTER 2021-09-05 22:59 | Outpatient (CLI) | payer OTHER, MEDICAID, SELFPAY ==
--- NOTE | 2021-09-06 00:02 | P.TNLD_ITS ---
Visit Information Visit Information Date of evaluation: 09/05/21 Primary OB Provider: Lon Whittington On-call OB Provider: Bambi Burns Reason for Evaluation: Yes rule out labor Comments/Additional reasons for admission: 21 year old at 35+5 weeks with contractions. Denies leaking or bleeding and reports good FM. Vital Signs Vital Signs: Temperature 37.1 BP 119/74 P 109 PFSH Medical History Anemia Anxiety Bilateral shoulder pain Cervical somatic dysfunction Chronic thoracic back pain Depression Gonorrhea (~2020) Hypertension (~2017) Low back pain during in third trimester Lumbar region somatic dysfunction Manic-depression Pelvic somatic dysfunction Peripheral neuropathy (~2017) Pes planus of both feet Sacral region somatic dysfunction Segmental and somatic dysfunction of abdomen and other regions Substance abuse (~2015) Thoracic region somatic dysfunction Upper extremity somatic dysfunction Vision disorder Surgical History Anesthesia History of eye surgery Family History Father Diabetes mellitus Hypertension Mental health problem Mother Mental health problem Brother Mental health problem Sister Mental health problem Grandfather Cancer Grandmother Diabetes mellitus Hypertension Hyperlipidemia Social History marital status: unmarried,single details: father will be involved number of children: 0 household members: none housing: other (correction type apartment - had been homeless) pets and animals: No education level: other (to 11th grade) occupational status: unemployed seatbelt use: always water heater temp set < 120 deg: Yes working smoke detector in home: Yes fire extinguisher in home: Yes carbon monox detector in home: Yes firearms in home: No do you feel safe at home: Yes Smoking Status: Never smoker quit status: quit date established (04/17/21) second hand exposure: Yes (will try to avoid this in the future) alcohol intake: former substance use type: marijuana (using now), crack/cocaine (non since ), heroin (not since ), hallucinogens, opiates (2020 - before test), methamphetamine (2018 - 1 time since ), prescription drug and other (Used anything she could get before rehab, has had a few times since that she has used, No IV use) during the past year weight has: other (Up and down, was 115 lbs start of 2020) well-balanced diet: daily or most days daily servings fruits/ve-4 caffeine: No Type(s) of exercise: walking Evaluation Evaluation Baseline heart rate: 130 Variability: Moderate (11-25) monitor accelerations: Present Monitor Decelerations: Absent Category of Tracing: Reactive Diagnosis, Plan/Disposition Final Diagnosis (1) 35 weeks gestation of : Status: Acute Plan/Disposition Plan: 21 year old at 35+5 weeks here for rule out labor. NST reactive with one contraction noted on the monitor. Patient was given return precautions and will follow up in clinic or return to the center as needed. OB Disposition: home
== END 2021-09-05 23:49 | disposition home or self-care (01) ==
LOC: OB 09-09 09:06
PROVIDERS: PCP Obstetrics & Gynecology; Referring Provider Family Medicine; Visit Provider Family Medicine
DX: O47.03 False labor before 37 completed weeks of gestation, third trimester (principal); Z3A.35 35 weeks gestation of pregnancy
CPT/HCPCS: 59025; G0378; G0379

== ENCOUNTER → 2021-09-10 09:31 | Outpatient (CLI) | payer OTHER, MEDICAID, SELFPAY ==
[2021-09-11 08:39] LABS: Strep Grp B PCR NEG for Grp B Strep
== END ==
PROVIDERS: PCP Obstetrics & Gynecology; Visit Provider Obstetrics & Gynecology
DX: Z34.83 Encounter for supervision of other normal pregnancy, third trimester (principal); Z3A.36 36 weeks gestation of pregnancy
CPT/HCPCS: 87653

== ENCOUNTER → 2021-09-24 10:26 | Outpatient (CLI) | payer OTHER, MEDICAID, SELFPAY | PROVIDERS: Visit Provider Obstetrics & Gynecology | DX: N39.0 Urinary tract infection, site not specified (principal) | CPT/HCPCS: 87086 ==

== ENCOUNTER 2021-09-26 04:03 | Outpatient (CLI) | payer OTHER, MEDICAID, SELFPAY | END 2021-09-26 05:45 | disposition home or self-care (01) | LOC: OB 10-03 07:20 | PROVIDERS: Referring Provider Obstetrics & Gynecology; Visit Provider Obstetrics & Gynecology | DX: O47.1 False labor at or after 37 completed weeks of gestation (principal); Z3A.39 39 weeks gestation of pregnancy; Z3A.37 37 weeks gestation of pregnancy | CPT/HCPCS: 59025; 84112; G0378; G0379 ==

== ENCOUNTER 2021-09-26 08:07 | Outpatient (CLI) | payer OTHER, MEDICAID, SELFPAY ==
[2021-09-26] MEDS: ACETAMINOPHEN 325 MG TABLET 975 MG PO (10:21)
== END 2021-09-26 10:30 | disposition home or self-care (01) ==
LOC: LABOR 09:52 → OB 10-03 07:21
PROVIDERS: Referring Provider Obstetrics & Gynecology; Visit Provider Obstetrics & Gynecology
DX: O47.1 False labor at or after 37 completed weeks of gestation (principal); Z3A.39 39 weeks gestation of pregnancy
CPT/HCPCS: 59025; 84112; G0378; G0379

== ENCOUNTER 2021-09-29 03:51 | Inpatient (IN) | payer OTHER, MEDICAID, SELFPAY ==
--- NOTE | 2021-09-29 10:10 | PM.OBHP.1 ---
OB HPI Date/Time Date of admission: 09/29/21 Date Patient Seen: 09/29/21 Time Patient Seen: 10:10 History of Present Condition Chief complaint: : 2 Para: 0 Estimated Date of Delivery: 10/06/21 Estimated Gestational Age (weeks): 39 Narrative: Violette Whitfield is a 21 year old female admitted with prolonged prodromal labor and nonreassuring monitoring Indications Indication for induction OB: nonreassuring APT (Minimal movement, no breathing, GER of 11, good tone, initial nonstress tests possible late decelerations, improved) History of Present care: good care, initiated at week # (13), number of visits (10) and pounds weight gain (68) Dating criteria: LMP confirmed by 1st trimester US Ultrasounds: normal mid trimester US Obstetrical complications: none Medical complications: none Preadmission Labs Blood type: O (+) positive -: Antibody screen: negative, GBS status: negative, HBsAG: negative, HIV: negative, HSV 1: negative, HSV 2: negative and RPR/VDLR: negative -: Chlamydia screen: not detected and Gonorrhea screen: not detected -: Rubella: immune and Varicella: not immune HCAB: negative Quad screen: Normal 1 hr GTT: 113 Evaluation Evaluation Baseline heart rate: 135 Variability: Moderate (11-25) monitor accelerations: Present Monitor Decelerations: Late (Resolved after 2 L of IV fluids) Contraction Frequency (minutes): 4 Uterine Contraction Intensity: Mild Category of Tracing: Reactive Status: Category ll Dilation (cm): 3 Effacement (%): 90 station: -1 Position of cervix: anterior Consistency: soft [facility] Medical History Anemia Anxiety Bilateral shoulder pain Cervical somatic dysfunction Chronic thoracic back pain Depression Gonorrhea (~2020) Hypertension (~2017) Low back pain during in third trimester Lumbar region somatic dysfunction Manic-depression Pelvic somatic dysfunction Peripheral neuropathy (~2017) Pes planus of both feet Sacral region somatic dysfunction Segmental and somatic dysfunction of abdomen and other regions Substance abuse (~2015) Thoracic region somatic dysfunction Upper extremity somatic dysfunction Vision disorder Surgical History Anesthesia History of eye surgery Family History Father Diabetes mellitus Hypertension Mental health problem Mother Mental health problem Brother Mental health problem Sister Mental health problem Grandfather Cancer Grandmother Diabetes mellitus Hypertension Hyperlipidemia Social History marital status: unmarried,single details: father will be involved number of children: 0 household members: none housing: other (custodial type apartment - had been homeless) pets and animals: No education level: other (to 11th grade) occupational status: unemployed seatbelt use: always water heater temp set < 120 deg: Yes working smoke detector in home: Yes fire extinguisher in home: Yes carbon monox detector in home: Yes firearms in home: No do you feel safe at home: Yes Smoking Status: Never smoker quit status: quit date established (04/17/21) second hand exposure: Yes (will try to avoid this in the future) alcohol intake: former substance use type: marijuana (using now), crack/cocaine (non since ), heroin (not since ), hallucinogens, opiates (2020 - before test), methamphetamine (2018 - time since ), prescription drug and other (Used anything she could get before rehab, has had a few times since that she has used, No IV use) during the past year weight has: other (Up and down, was 115 lbs start of 2020) well-balanced diet: daily or most days daily servings fruits/ve-4 caffeine: No Type(s) of exercise: walking Meds Home Medications and Allergies Home Medications Medication Instructions Recorded Confirmed Type vitamins no.42-folate See Rx Instructions .Route .COMPLEX 03/25/21 09/29/21 History comb.no.6 1 mg chewable tablet Allergies Allergy/AdvReac Type Severity Reaction Status Date / Time No Known Drug Allergies Allergy Verified 09/24/21 10:14 Review of Systems Review of Systems Narrative: Patient denies leakage of fluid. No headaches, scotomata, epigastric pain. She has been having prodromal labor pains for 3 days. Good movement. OB Exam Narrative Exam Narrative: Blood pressure 102/62, pulse of 85, temperature 97.8? HEENT exam within normal limits. Lungs are clear to auscultation and percussion. Heart is regular rate and rhythm no S3-S4 murmurs. Abdomen is gravid. Fetus is vertex. Ultrasound shows the fetus is in the OP position. Extremities with trace edema and nontender. Assessment and Plan Assessment and Plan Assessment and Plan narrative: 39 week gestation with prodromal labor with initial monitoring showing late decelerations which resolved with fluids but biophysical profile does not show good movement or breathing. Decision made to proceed with Pitocin induction. Consent form reviewed with the patient and signed. Time Spent with Patient Total time spent with greater than 50% in coordination of care (as documented) at patient's floor/unit and/or counseling patient:: less than 15 minutes
[2021-09-29 10:26] LABS: COVID19 -Nasal RAPID Negative (Negative)
[2021-09-29] MEDS: LACTATED RINGERS 1,000 ML 100 ML IV (10:30)
[2021-09-29 10:59] LABS: Hematocrit 34.2 % (36-46); Hemoglobin 11.6 g/dL (12.0-16.0); Mean Corpuscular Hemoglobin 28.4 PG (26-34); Mean Corpuscular Volume 83.6 fL (80-100); Platelet Count 221 X10^3/uL (150-400); Red Blood Cell Count 4.09 X10^6/uL (4.0-5.2); Red Cell Distribution Width 14.5 % (11.6-14.8); White Blood Cell Count 12.6 X10^3/uL (4.5-11.0)
[2021-09-29 11:00] LABS: Add Manual Diff / Slide Review YES
[2021-09-29] MEDS: OXYTOCIN PREMIX 30 UNIT/500 ML PLAST..BAG IV (11:23)
[2021-09-29 11:25] LABS: Neutrophils Absolute Manual 7434 /uL (3000-5900); RBC Morphology Normal Morphology; Total Cells Counted 100
[2021-09-29 11:42] VITALS: BP 116/68
[2021-09-29] MEDS: LACTATED RINGERS 1,000 ML 999 ML IV (14:54)
--- NOTE | 2021-09-29 18:03 | PM.OBPNLAB ---
Date/Time Date Patient Seen: 09/29/21 Time Patient Seen: 18:03 Pain Control Pain control: tolerating well Pelvic Exam Dilation (cm): 4 Effacement (%): 90 station: -1 Amniotic membrane status: Ruptured (AROMed) Contractions Contractions on admission: regular Monitor mode: External Pitocin rate (mU/min): 3 Contraction frequency (min): 3 Contraction duration (min): 1 Contraction pattern: Regular Contraction intensity: Moderate Status status: Category l Heart Rate Baseline: 140 Monitor Accelerations: Present Monitor Decelerations: Absent Monitor Variability: Moderate Assessment and Plan Assessment: induction ongoing Plan: continuous present management Comments: AROMed for clear fluid. Epidural for pain.
[2021-09-29 21:31] LABS: UR Morphine/Opiate cutoff 300 Negative (Negative); Ur Creatinine Normal (Normal); Ur Specific Gravity Normal (Normal); Urine Amphetamines Negative (Negative); Urine Barbiturates Negative (Negative); Urine Benzodiazepines Negative (Negative); Urine Cocaine Negative (Negative); Urine MDMA Negative (Negative); Urine Methadone Negative (Negative); Urine Methamphetamines Negative (Negative); Urine Oxycodone Negative (Negative); Urine Phencyclidine Negative (Negative); Urine Tetrahydrocannabinol Negative (Negative); Urine Tricyclic Antidepressant Negative (Negative); Urine pH Normal (Normal)
--- NOTE | 2021-09-29 22:41 | PM.OBPNLAB ---
Date/Time Date Patient Seen: 09/29/21 Time Patient Seen: 22:41 Pain Control Pain control: epidural Pelvic Exam Dilation (cm): 5 Effacement (%): 100 station: -1 Amniotic membrane status: Ruptured (AROMed) Contractions Contractions on admission: regular Monitor mode: External Pitocin rate (mU/min): 5 Contraction frequency (min): 3 Contraction pattern: Regular Contraction intensity: Moderate Status status: Category l Heart Rate Baseline: 135 Monitor Accelerations: Present Monitor Decelerations: Absent Monitor Variability: Moderate Assessment and Plan Plan: continuous present management
[2021-09-30] MEDS: LACTATED RINGERS 1,000 ML 999 ML IV (03:05)
--- NOTE | 2021-09-30 04:26 | PM.OBPRVD ---
Labor & Delivery Delivery date: 09/30/21 Induction method: per pitocin protocol Delivery augmentation: rupture of membranes Delivery monitor: external FHT and external uterine Route of delivery: L&D Laceration Description: Perineal - 1st Degree Delivery repair: chromic (3-0) Estimated blood loss (mL): 200 Anesthesia Type: Epidural Narrative: Patient arrived on Labor and delivery in prodromal labor. Due to nonreassuring biophysical profile and intermittent late decelerations decision was made to keep the patient and deliver. Patient was started on Pitocin. She was AROM for clear fluid. She had an epidural catheter for pain control. heart tones remained category 1 to category 2 throughout labor. The patient delivered spontaneously, over an intact perineum a viable male infant. The was placed on maternal abdomen. After the cord stopped pulsating the cord was clamped, cut, and cord bloods obtained. Placenta delivered spontaneously, intact, with 3 vessels. There were no cervical tears. There is a first-degree vaginal perineal tear that was repaired with 3-0 chromic sutures. There were bilateral periurethral tears that did not require suturing. Both infant mother doing well. Baby 1: gender: Male Presentation: vertex Position: Left Occiput Anterior Placenta delivery description: Spontaneous Cord Vessel Description: 3 Vessels score (1 min): 9 score (5 min): 9 Plan for aftercare: Routine care
[2021-09-30] MEDS: ACETAMINOPHEN 325 MG TABLET 650 MG PO ×2 (12:47→18:49)
[2021-09-30] MEDS: IBUPROFEN 600 MG TABLET PO ×2 (12:48→18:52)
[2021-09-30] MEDS: DERMOPLAST SPRAY 20% 60 ML 1 SPRAY TOP (15:52)
[2021-09-30 18:49] VITALS: TEMP 36.9
[2021-09-30 18:52] VITALS: TEMP 36.9
[2021-10-01] MEDS: IBUPROFEN 600 MG TABLET PO ×2 (01:18→07:58)
[2021-10-01] MEDS: ACETAMINOPHEN 325 MG TABLET 650 MG PO ×2 (01:18→07:55)
[2021-10-01 07:15] LABS: Add Manual Diff / Slide Review NO; Basophils Absolute Auto 100 /uL (0-100); Basophils Percent Auto 0.5 % (0-2); Eosinophils Absolute Auto 200 /uL (0-450); Eosinophils Percent Auto 0.9 % (2-4); Hematocrit 32.8 % (36-46); Hemoglobin 10.9 g/dL (12.0-16.0); Lymphocytes Absolute Auto 4400 /uL (1100-4500); Lymphocytes Percent Auto 26.8 % (25-40); Mean Corpuscular HGB Conc 33.3 % (30-36); Mean Corpuscular Hemoglobin 27.7 PG (26-34); Monocytes Absolute Auto 900 /uL (0-900); Monocytes Percent Auto 5.5 % (3-14); Neutrophils Absolute Auto 11000 /uL (1500-7000); Neutrophils Percent Auto 66.3 % (50-75); Platelet Count 184 X10^3/uL (150-400); Red Blood Cell Count 3.95 X10^6/uL (4.0-5.2); Red Cell Distribution Width 14.6 % (11.6-14.8); White Blood Cell Count 16.5 X10^3/uL (4.5-11.0)
--- NOTE | 2021-10-01 07:49 | P.DS_ITS ---
Discharge Providers Provider Date of admission: 09/29/21 03:51 Discharge Date: 10/01/21 Consults: 09/29/21 10:04 Consult to Anesthesiology Urgent Comment: Consulting Provider: Anesthesiologist Reason for consultation: Epidural Has provider been notified: No 10/01/21 04:23 Consult to Captain Of [employer] Routine Comment: Discharge provider: Lon Whittington MD Summary Hospital Course Date Patient Seen: 10/01/21 Time Patient Seen: 07:49 Diagnoses: Intrauterine gestation, guerrero, 39+1 weeks EGA, delivered Hospital Course: Violette was admitted on 09/29/2021 in prodromal labor and following AROM progressed well in labor with an epidural in place and on the morning of 09/30/2021 delivered a viable male via spontaneous vaginal . Following delivery the patient and the baby have both done well with the mother experiencing prompt return of bowel and bladder function, she is ambulating independently, tolerating a regular diet, and her pain is well controlled by oral pain medications. She will be discharged at this time to home in an afebrile normotensive condition after counseling regarding precautionary symptoms, limitations of activity, medications, plans for follow-up. Medications at discharge will include vitamins 1 p.o. q.d. and ibuprofen 600 mg p.o. q.6 hours as needed pain dispensed 60 with 2 refills. Follow-up appointment will be in 6 weeks and contraception will be discussed at that time. Peripartum Data Infant Delivery Method: Natural Vaginal Laceration Description: Perineal - 1st Degree Episiotomy description: None complications: none [place] 1: Gender: Male Disposition of : home Status at Discharge Cognitive/behavioral status at discharge: oriented Functional status at discharge: independent ambulation Overall status at discharge: patient is progressing back to baseline Time Spent with Patient Time attestation: Total time spent providing and/or coordinating discharge services: Time spent: Less than 30 minutes Objective Labs Result Diagrams: 10/01/21 06:50 Labs: Laboratory Results - last 24 hr 10/01/21 06:50 WBC 16.5 H RBC 3.95 L Hgb 10.9 L Hct 32.8 L MCV 83.0 MCH 27.7 MCHC 33.3 RDW 14.6 Plt Count 184 Neut % (Auto) 66.3 Lymph % (Auto) 26.8 Nelson % (Auto) 5.5 Eos % (Auto) 0.9 L Baso % (Auto) 0.5 Neut # (Auto) 87156 H Lymph # (Auto) 4400 Nelson # (Auto) 900 Eos # (Auto) 200 Baso # (Auto) 100 Exam Const General: cooperative and comfortable Nutritional Appearance: average body habitus Orientation: alert and oriented x3 HENMT Head: normal to inspection, atraumatic and abrasion Ears: hearing grossly normal bilaterally Face and sinus: face symmetric Eyes General: appearance normal, both eyes and all related structures Conjunctivae: conjunctivae normal Sclera: sclerae normal EOM: EOM intact bilaterally Neck Neck: normal visual inspection Resp Effort & Inspection: normal respiratory effort and able to speak in complete sentences Auscultation: clear to auscultation bilaterally Cardio Rate: regular rate Rhythm: regular rhythm Heart Sounds: S1 normal, S2 normal and no murmurs GI Inspection: normal to inspection Palpation: soft and no hepatosplenomegaly External Female Exam: other (No significant bleeding noted) Extrem General: no calf tenderness Psych Appearance: grossly normal Mental Status: mental status grossly normal Speech and Movement: speech and movement normal Mood: congruent mood Affect: normal affect Attitude: cooperative Thought Process: normal Thought Content: normal Judgment: judgment good Discharge Plan Discharge Plan Patient Disposition: Home Provider Discharge Comment: Please review the written instructions you received when you were discharged from the hospital. Your follow-up appointment will be in 6 weeks and I look forward to seeing you then. If in the meanwhile however you have any issues, concerns, or problems, please contact me either through the office phone at [phone] or via the patient portal. Discharge orders & Medications Prescriptions: New ibuprofen 600 mg Tablet 600 mg PO Q6HR PRN (Reason: Pain, Mild (1-3)) Qty: 60 2RF Continued vit no.42-folate no.6 1 mg tablet,chewable See Rx Instructions .ROUTE .COMPLEX Rx Instructions: Take as prescribed. Follow up/Referrals: Lon Whittington MD [Physician] - (please follow up w/ Dr. Whittington on ) Discharge Health Status Multidrug resistant organism: No MDRO Diet/Activity/Treatments Diet: Diet as Tolerated Activity: As tolerated Skin/Wound/Dressing Care Report to your healthcare provider any signs of infection, such as:: chills, fever, increased pain, unusual drainage and unusual redness Dressing: N/A Visit Report/Discharge Packet Instructions: DI for Labor and Delivery, Vaginal , DI for and Nipple Soreness Stand Alone Forms: Discharge: Care
[2021-10-01 07:55] VITALS: TEMP 36.6
[2021-10-01 07:58] VITALS: TEMP 36.6
[2021-10-01] MEDS: PRENATAL VIT,CALC/IRON/FOLIC 1 TABLET 1 TAB PO (07:59)
[2021-10-01 12:25] VITALS: BP 119/73; PULSE 90; RESP 18; TEMP 37
== END 2021-10-01 13:00 | disposition home or self-care (01) | DRG 560 ==
PROVIDERS: Admitting Provider Specialist; Referring Provider Specialist; Visit Provider Specialist
DX: O76 Abnormality in fetal heart rate and rhythm complicating labor and delivery (principal); O63.9 Long labor, unspecified; O70.0 First degree perineal laceration during delivery; Z3A.39 39 weeks gestation of pregnancy; Z37.0 Single live birth; Z20.822 Contact with and (suspected) exposure to COVID-19
CPT/HCPCS: 01967; 36415; 59050; 59400; 59409; 76815; 80305; 85007; 85025; 86850; 86900; 86901; 87635; 96360; C9803; G0379; J2590

== ENCOUNTER → 2022-06-26 16:57 | Outpatient (CLI) | payer OTHER, MEDICAID, SELFPAY ==
[2022-06-26 18:20] LABS: HCG Quantitative /Beta subunit 20.6 mIU/mL
== END ==
PROVIDERS: Referring Provider Obstetrics & Gynecology; Visit Provider Obstetrics & Gynecology
DX: Z34.90 Encounter for supervision of normal pregnancy, unspecified, unspecified trimester (principal)
CPT/HCPCS: 36415; 84702

== ENCOUNTER → 2022-06-30 10:01 | Outpatient (CLI) | payer OTHER, MEDICAID, SELFPAY ==
[2022-06-30 12:26] LABS: HCG Quantitative /Beta subunit 240.5 mIU/mL
== END ==
PROVIDERS: Referring Provider Obstetrics & Gynecology; Visit Provider Obstetrics & Gynecology
DX: Z34.90 Encounter for supervision of normal pregnancy, unspecified, unspecified trimester (principal)
CPT/HCPCS: 36415; 84702

== ENCOUNTER → 2022-07-14 12:56 | Outpatient (CLI) | payer OTHER, MEDICAID, SELFPAY ==
--- NOTE | 2022-07-14 12:57 | DI.US.S_ITS ---
PROCEDURE: US OB <= 14 WEEKS FETUS INDICATIONS: DATING AND VIABILITY OUTSIDE/PRIOR DATING DATA: Last menstrual period (LMP): 04/11/2022. LMP-based estimated date of delivery (MARIALUISA): 01/16/2023. TECHNIQUE: Real-time scanning was performed of the fetus and maternal pelvic organs, with image documentation. Endovaginal scanning was also performed to better visualize the fetus and maternal ovaries. COMPARISON: [facility], , OB <= 14 WEEKS FETUS, 06/19/2018, 14:09. FINDINGS: No pole is seen. Adnexal structures within normal limits. Irregular gestational sac is present measuring 3.1 x 0.7 x 2.3 cm. IMPRESSION: Irregular gestational sac without pole. Findings are suspicious, but not diagnostic of failure. Consider laboratory and imaging follow-up. Dictated by: Deon Harrington M.D. on 07/14/2022 at 14:28 Approved by: Deon Harrington M.D. on 07/14/2022 at 14:30
== END ==
PROVIDERS: Referring Provider Obstetrics & Gynecology; Visit Provider Obstetrics & Gynecology
DX: O36.80X0 Pregnancy with inconclusive fetal viability, not applicable or unspecified (principal)
CPT/HCPCS: 76801; 76817

== ENCOUNTER → 2022-07-15 10:38 | Outpatient (CLI) | payer OTHER, MEDICAID, SELFPAY ==
[2022-07-15 11:53] LABS: Add Manual Diff / Slide Review NO; Basophils Absolute Auto 100 /uL (0-100); Basophils Percent Auto 0.5 % (0-2); Eosinophils Absolute Auto 0 /uL (0-450); Eosinophils Percent Auto 0.4 % (2-4); Hematocrit 38.3 % (36-46); Hemoglobin 12.9 g/dL (12.0-16.0); Lymphocytes Absolute Auto 2900 /uL (1100-4500); Lymphocytes Percent Auto 26.7 % (25-40); Mean Corpuscular HGB Conc 33.8 % (30-36); Mean Corpuscular Hemoglobin 27.4 PG (26-34); Mean Corpuscular Volume 81.1 fL (80-100); Monocytes Absolute Auto 500 /uL (0-900); Monocytes Percent Auto 4.2 % (3-14); Neutrophils Absolute Auto 7500 /uL (1500-7000); Neutrophils Percent Auto 68.2 % (50-75); Platelet Count 259 X10^3/uL (150-400); Red Blood Cell Count 4.72 X10^6/uL (4.0-5.2); Red Cell Distribution Width 14.7 % (11.6-14.8)
[2022-07-15 12:54] LABS: Hepatitis B Surface Antigen NEGATIVE s/c (NEGATIVE); Rubella Antibody IgG 49.3 IU/mL (>15)
[2022-07-15 13:03] LABS: HCG Quantitative /Beta subunit 64237 mIU/mL
[2022-07-15 13:12] LABS: HIV 1 & 2 Ab/Ag 4th Gen Combo NEGATIVE (NEGATIVE); Hep C Virus Ab w/Reflex Quant NEGATIVE s/c (NEGATIVE)
[2022-07-16 06:19] LABS: RPR Screen Non Reactive (Non Reactive)
[2022-07-16 11:37] LABS: Varicella IgG Antibody <135 index (Immune >165)
== END ==
PROVIDERS: Referring Provider Obstetrics & Gynecology; Visit Provider Obstetrics & Gynecology
DX: Z34.80 Encounter for supervision of other normal pregnancy, unspecified trimester (principal); O20.0 Threatened abortion
CPT/HCPCS: 36415; 80055; 84702; 86787; 86803; 86850; 86900; 86901; 87389

== ENCOUNTER → 2022-07-17 09:25 | Outpatient (CLI) | payer OTHER, MEDICAID, SELFPAY ==
[2022-07-17 11:30] LABS: HCG Quantitative /Beta subunit 89111 mIU/mL
== END ==
PROVIDERS: Referring Provider Obstetrics & Gynecology; Visit Provider Obstetrics & Gynecology
DX: O20.0 Threatened abortion (principal); Z34.80 Encounter for supervision of other normal pregnancy, unspecified trimester
CPT/HCPCS: 36415; 84702; 87086

== ENCOUNTER → 2022-07-29 15:40 | Outpatient (CLI) | payer OTHER, MEDICAID, SELFPAY ==
--- NOTE | 2022-07-29 15:41 | DI.US.S_ITS ---
PROCEDURE: US OB <= 14 WEEKS FETUS INDICATIONS: DATES OUTSIDE/PRIOR DATING DATA: Last menstrual period (LMP): 04/11/2022 LMP-based estimated date of delivery (MARIALUISA): 01/16/2023 First dating scan (date and location): 07/29/2022 Estimated date of delivery (MARIALUISA) from first dating scan: 03/10/2023 TECHNIQUE: Real-time scanning was performed of the fetus and maternal pelvic organs, with image documentation. Endovaginal scanning was also performed to better visualize the fetus and maternal ovaries. COMPARISON: [facility], US, US OB <= 14 WEEKS FETUS, 07/14/2022, 13:03. FINDINGS: Embryo: Irregularly shaped intrauterine gestational sac is again seen, now with yolk sac and pole. [place]-rump length is 1.6 cm, consistent with an estimated gestational age of 8 weeks 0 days (gestational age by LMP is 15 weeks 4 days). Heart rate: 163 BPM Maternal organs: Ovaries are unremarkable. No adnexal mass. IMPRESSION: 1. Single live intrauterine with crown-rump length compatible with an estimated gestational age of 8 weeks 0 days, giving an ultrasound MARIALUISA of 03/10/2023. size is significantly smaller than expected based on clinical dates. 2. Irregularly-shaped gestational sac is noted as seen on the prior exam, which is of uncertain clinical significance at this time. We strive to produce accurate, complete, and clear reports of imaging services. To assist us in improving patient care, this report was composed using standard report templates and voice recognition software. Therefore, it may contain abnormal punctuation, insertions and/or omissions. Occasional wrong-word or sound-alike substitutions may occur. Though we review the report and make efforts to correct it, we do recommend that the report be read carefully in proper context to recognize any text inaccuracies. Approved by: Chris Evans M.D. on 07/29/2022 at 16:45
== END ==
PROVIDERS: Referring Provider Obstetrics & Gynecology; Visit Provider Obstetrics & Gynecology
DX: O20.0 Threatened abortion (principal)
CPT/HCPCS: 76801; 76817

== ENCOUNTER → 2022-10-23 12:48 | Outpatient (CLI) | payer OTHER, MEDICAID, SELFPAY ==
--- NOTE | 2022-10-23 | DI.US.S_ITS ---
PROCEDURE: US OB >= 14 WEEKS FETUS INDICATIONS: 20 WK ANATOMY SCAN OUTSIDE/PRIOR DATING DATA: Last menstrual period (LMP): April 11, 2022. LMP-based estimated date of delivery (MARIALUISA): January 16, 2023. First dating scan (date and location): July 29, 2022. Estimated date of delivery (MARIALUISA) from first dating scan: March 10, 2023. The calculations are made using the sonographic MARIALUISA of March 10, 2023. TECHNIQUE: Real-time scanning was performed of the fetus, with image documentation and biometric measurements. Endovaginal scanning: Not performed COMPARISON: [facility], OB <= 14 WEEKS FETUS, 07/29/2022, 15:47. FINDINGS: General: A single living intrauterine gestation is present. Presentation: Breech. Placenta: Placental position is posterior , without previa. Amniotic fluid index: 15.2 cm, normal range is 5-24 cm. Single deepest vertical pocket is 5.2 cm. heart rate: 147 beats per minute. Maternal cervical canal: 4.2 cm long. Normal lower limit is 2.5 cm. biometrics: Biparietal diameter: 4.8 cm, 20 weeks and 3 days Head circumference: 18.3 cm, 20 weeks and 5 days Abdominal circumference: 16.3 cm, 21 weeks and 3 days Femur length: 3.5 cm, 21 weeks and 0 days Clinically estimated gestational age: 20 weeks and 2 days Composite gestational age from present scan: 20 weeks and 6 days Estimated weight and percentile: 401 g, 88th percentile Anatomic survey: Neuro: Ventricles are non-dilated at less than 10 mm. Cisterna magna is normal at 3-11 mm. Cerebellum is normal in size and morphology. Nuchal skin fold: Normal at less than 6 mm between 14-21 weeks gestational age. Face: Nose and lips, facial profile are normal. Spine: No evidence for spina bifida. Heart: 4-chambered heart is present, with normal left ventricular outflow tract. Right ventricular outflow tract not well-visualized secondary to lie. Diaphragm: Diaphragm is intact. Stomach: Left-sided stomach is present. Kidneys: No hydronephrosis. Normal is less than 5 mm in 2nd trimester, less than 7 mm in 3rd trimester. Cord: 3-vessel cord has orthotopic insertion. Bladder: Normal in size. Extremities: All 4 extremities identified. IMPRESSION: Single living intrauterine gestation with estimated sonographic gestational age of approximately 20 weeks and 6 days versus 20 weeks and 2 days by initial dating ultrasound. Expected interval growth has occurred. Estimated weight of approximately 401 g which correlates with the 88th percentile. The right ventricular outflow tract was not well visualized on this examination secondary to positioning during this examination. Follow-up imaging recommended. Otherwise, normal second-trimester anatomy screening survey. We strive to produce accurate, complete, and clear reports of imaging services. To assist us in improving patient care, this report was composed using standard report templates and voice recognition software. Therefore, it may contain abnormal punctuation, insertions and/or omissions. Occasional wrong-word or sound-alike substitutions may occur. Though we review the report and make efforts to correct it, we do recommend that the report be read carefully in proper context to recognize any text inaccuracies. Dictated by: Melchor Albert M.D. on 10/23/2022 at 14:26 Approved by: Melchor Albert M.D. on 10/23/2022 at 14:57
== END ==
PROVIDERS: Referring Provider Advanced Practice Midwife; Visit Provider Advanced Practice Midwife
DX: Z34.02 Encounter for supervision of normal first pregnancy, second trimester (principal); Z3A.20 20 weeks gestation of pregnancy
CPT/HCPCS: 76811

== ENCOUNTER 2022-11-09 17:56 | Outpatient (CLI) | payer OTHER, MEDICAID, SELFPAY ==
[2022-11-09 18:41] LABS: Appearance Urine UA CLEAR; Bilirubin Urine UA NEGATIVE (NEGATIVE); Color Urine UA YELLOW; Glucose Urine UA NEGATIVE (Negative); Ketones Urine UA NEGATIVE (NEGATIVE); Leukocyte Esterase Urine UA TRACE (NEGATIVE); Nitrite Urine UA NEGATIVE (Negative); Occult Blood Urine UA 1+ (Negative); Protein Urine UA NEGATIVE (Negative); Specific Gravity Urine UA 1.025 (1.000-1.035); Urobilinogen Urine UA 0.2 E.U./dL (0.2)
[2022-11-09 18:43] LABS: pH Urine UA 6.5 (4.5-8.0)
[2022-11-09 18:53] LABS: Bacteria Urine Moderate (10-30); RBC Urine 0-1/HPF (0-5/HPF); Squamous Epithelial Cell Urine 5-10 /HPF (0-5/HPF); WBC Urine 1-5/HPF (0-5/HPF)
[2022-11-09 18:54] LABS: Culture Indicated Urine Cult Not Indicated
--- NOTE | 2022-11-09 19:12 | PM.OBTRLD ---
Visit Information Visit Information Date of evaluation: 11/09/22 Primary OB Provider: Mackenzie Buckley On-call OB Provider: Mackenzie Buckley Reason for Evaluation: Yes other Comments/Additional reasons for admission: Rectal bleeding: confirm rectal versus vaginal bleeding. Violette came to ED for concerns about rectal bleeding. Had normal BM last night without pain. Today when tried to poop only had bleeding. At first was unsure if it was vaginal or rectal, then because more confident it was rectal. Second time, bleeding spurted out and made her concerned. Also c/o cramping that at first she was unsure if it was abdominal or uterine. Has a history of hemorrhoids from prior /. Has had rectal bleeding like this before, but wasn't worried about it until today because she is . Has been feeling baby move normaly today and did FHR with doppler at home with normal HR. Violette does not have a PCP. Violette is reassured that her baby is well and happy that we were not able to pecan picker any uterine contractions on the toco. Vital Signs Vital Signs: BP: 108/67 Temp: 36.5 C HR 87 bpm SpO2: 97% [facility] Medical History (Updated 11/09/22 @ 19:23 by Mackenzie Buckley, CNM, [employer]) Acute UTI Anemia Anemia in preg-unspec Anxiety (10/23/15) Bilateral shoulder pain Cervical somatic dysfunction Chronic thoracic back pain Depression (10/23/15) Gonorrhea (~2020) Headache Hypertension (~2017) Low back pain during in third trimester Lumbar region somatic dysfunction Manic-depression Migraine without status migrainosus, not intractable (10/23/15) Nystagmus Pelvic somatic dysfunction Peripheral neuropathy (~2017) Pes planus of both feet Polysubstance abuse Sacral region somatic dysfunction Segmental and somatic dysfunction of abdomen and other regions Substance abuse (~2015) Thoracic region somatic dysfunction Upper extremity somatic dysfunction Vaginal delivery (~09/30/21) Surgical History (Updated 07/09/22 @ 14:48 by Saida Lopez RN) Anesthesia History of eye surgery Family History (Updated 07/09/22 @ 14:51 by Saida Lopez RN) Father Diabetes mellitus Hypertension Depression Family estrangement Mother Mental health problem Depression Brother Depression Anxiety Sister Anxiety Depression Grandfather Cancer of kidney Grandmother Diabetes mellitus Hypertension Hyperlipidemia Grandfather Stomach cancer Alcoholism Grandmother Alcoholism Social History marital status: unmarried,living together details: father will be involved number of children: 1 household members: significant other, family (s/o's parents) and children lives independently: Yes caregiver/support person: Yes housing: house pets and animals: Yes (2 dogs) education level: other (to 11th grade) occupational status: unemployed current occupational exposures/hazards: No special petar needs: No travel history: over 6 months ago seatbelt use: always water heater temp set < 120 deg: Yes working smoke detector in home: Yes fire extinguisher in home: Yes carbon monox detector in home: Yes firearms in home: No do you feel safe at home: Yes Smoking Status: Former smoker (quit early 2021 in 1st ) Tobacco: How many years used: 7 quit status: quit date established (04/17/21) second hand exposure: No alcohol intake: former substance use type: former substance user during the past year weight has: other (baby ~9 months old) well-balanced diet: daily or most days daily servings fruits/ve-4 caffeine: No Type(s) of exercise: walking Review of Systems Review of Systems Narrative: Negative except as mentioned above. Exam GI Inspection: normal to inspection (with visible hemorrhoid. No bleeding visible. ) Rectal Exam: visual inspection normal and hemorrhoids External Female Exam: normal external appearance Manual OB Exam: dilated fingertip, effaced 25% and station high Amniotic Fluid: no fluid Psych Appearance: grossly normal Mental Status: mental status grossly normal Speech and Movement: speech and movement normal Mood: congruent mood and anxious mood Affect: normal affect Attitude: cooperative Thought Process: normal Objective Labs Labs: Laboratory Results - last 24 hr 11/09/22 18:30 Urine Color Yellow Urine Appearance Clear Urine pH 6.5 Ur Specific [place] 1.025 Urine Protein Negative Urine Glucose (UA) Negative Urine Ketones Negative Urine Occult Blood 1+ H Urine Nitrate Negative Urine Bilirubin Negative Urine Urobilinogen 0.2 Ur Leukocyte Esterase Trace H Urine RBC 0-1/hpf Urine WBC 1-5/hpf Ur Squamous Epith Cells 5-10 /hpf H Urine Bacteria Moderate (10-30) H Ur Culture Indicated? Cult not indicated Evaluation Evaluation Baseline heart rate: 145 Variability: Average (6-10) monitor accelerations: Absent Monitor Decelerations: Absent Contraction Frequency (minutes): 0 Category of Tracing: Appropriate for gestational age Cervical dilation (cm): 0 Cervical effacement (%): 30 (Long) station: -4 Comments: No vaginal bleeding or abnormal discharge noted with vaginal/cervical exam. Diagnosis, Plan/Disposition Final Diagnosis (1) Hemorrhoids affecting or puerperium with complication: Status: Acute Problem details: Differential: hemorrhoids or anal fissure (2) Anal fissure, unspecified: Status: Acute Problem details: History of hemorrhoids and rectal bleeding prior to this (3) Supervision of normal in second trimester: Status: Acute Plan/Disposition Plan: 1. Discharge home. 2. Recommend getting preparation H and/or rectal steroid and reviewed how to apply internally for best results. 3. Recommend getting PCP - Violette will call tomorrow. Review that if this is a press tender long goods issue, she might need better diagnosis. 4. RTC to clinic as scheduled with AUDELIA.
== END 2022-11-09 19:13 | disposition home or self-care (01) ==
LOC: OB 11-17 12:06
PROVIDERS: Advanced Practice Midwife; Referring Provider Obstetrics & Gynecology; Visit Provider Obstetrics & Gynecology
DX: O22.42 Hemorrhoids in pregnancy, second trimester (principal); O26.892 Other specified pregnancy related conditions, second trimester; K60.0 Acute anal fissure; Z3A.22 22 weeks gestation of pregnancy
CPT/HCPCS: 59025; 81001; G0378; G0379

== ENCOUNTER → 2022-11-13 15:47 | Outpatient (CLI) | payer OTHER, MEDICAID, SELFPAY ==
--- NOTE | 2022-11-13 | DI.US.S_ITS ---
PROCEDURE: US OB FOLLOW UP INDICATIONS: FOLLOW UP ANATOMY SCAN OUTSIDE/PRIOR DATING DATA: Last menstrual period (LMP): 04/11/2022. LMP-based estimated date of delivery (MARIALUISA): 01/16/2023. First dating scan (date and location): 07/29/2022. Estimated date of delivery (MARIALUISA) from first dating scan: 03/10/2023. TECHNIQUE: Real-time scanning was performed of the fetus, with image documentation. Endovaginal scanning: Not performed [facility] >= 14 WEEKS F[facility]US, 10/23/2022, 13:00. FINDINGS: A single living intrauterine gestation is present. Presentation: Vertex. Placenta: Placental position is posterior, without previa. Amniotic fluid index: 19.2 cm, normal range is 5-24 cm. Single deepest vertical pocket is 5.4 cm. heart rate: 153 beats per minute. Maternal cervical canal: 4.5 cm long. Normal lower limit is 2.5 cm. estimated gestational age: 23 weeks 2 days Right ventricular outflow tract visualized and within normal limits. Left renal pelviectasis and calyceal dilation. Renal pelvis diameter of 10 mm. Right renal pelvis diameter of 4 mm, borderline dilated. IMPRESSION: 1. Single living intrauterine . 2. right ventricular outflow tract visualized and appears within normal limits. 3. Left-sided urinary tract dilation. Follow-up third trimester ultrasound recommended at about 32 weeks gestational age to rule out progression and determine need for follow-up. Dictated by: Chris Anderson M.D. on 11/14/2022 at 9:05 Approved by: Chris Anderson M.D. on 11/14/2022 at 9:23
== END ==
PROVIDERS: Referring Provider Advanced Practice Midwife; Visit Provider Advanced Practice Midwife
DX: Z34.02 Encounter for supervision of normal first pregnancy, second trimester (principal)
CPT/HCPCS: 76816

== ENCOUNTER → 2023-01-19 17:03 | Outpatient (CLI) | payer OTHER, MEDICAID, SELFPAY ==
--- NOTE | 2023-01-19 | DI.US.S_ITS ---
PROCEDURE: US OB FOLLOW UP INDICATIONS: OB FOLLOW UP ON KIDNEYS OUTSIDE/PRIOR DATING DATA: Last menstrual period (LMP): 04/11/2022 LMP-based estimated date of delivery (MARIALUISA): 01/11/2023 First dating scan (date and location): 07/29/2022 Estimated date of delivery (MARIALUISA) from first dating scan: 03/10/2023 The calculations are made using the study generated MARIALUISA of 03/10/2023. TECHNIQUE: Real-time scanning was performed of the fetus, with image documentation. Endovaginal scanning: Not indicated COMPARISON: [facility], , OB FOLLOW UP, 11/13/2022, 15:52. FINDINGS: A single living intrauterine gestation is present. Presentation: Vertex Placenta: Placental position is posterior, without previa. Amniotic fluid index: 21.5 cm, normal range is 5-24 cm. Single deepest vertical pocket is 6.7 cm. heart rate: 149 beats per minute. Maternal cervical canal: 5.3 cm long. Normal lower limit is 2.5 cm. Estimated gestational age from initial scan: 32 weeks, 6 days. There is moderate to severe left-sided hydronephrosis with left renal pelvis measures 9.4 mm. Dilated left ureter is seen extending to the level of UVJ with a maximum diameter measures 5.8 mm in mid ureter. No right-sided hydronephrosis or hydroureter. There is ill-defined hypoechoic area within left superior portion of placenta and measures up to 4.7 x 2.3 x 2 cm in size. No internal vascularity is seen. IMPRESSION: 1. Single live intrauterine gestation with fetus in vertex presentation. heart rate is 149 beats per minute. Normal amount of amniotic fluid at 21.5 cm. 2. Moderate to severe left-sided hydronephrosis as described above. No right-sided hydronephrosis. 3. Ill-defined hypoechoic area within superior portion of placenta as described above which could represent venous Yañez versus placental hematoma suggest clinical correlation and follow-up. Dictated by: Michael Fontaine M.D. on 01/19/2023 at 18:52 Approved by: Michael Fontaine M.D. on 01/19/2023 at 18:56
== END ==
PROVIDERS: Referring Provider Midwife; Visit Provider Midwife
DX: Z3A.32 32 weeks gestation of pregnancy; Z36.2 Encounter for other antenatal screening follow-up
CPT/HCPCS: 76816

== ENCOUNTER 2023-01-25 06:20 | Outpatient (CLI) | payer OTHER, MEDICAID, SELFPAY ==
--- NOTE | 2023-01-25 06:28 | DI.US.S_ITS ---
PROCEDURE: US OB >= 14 WEEKS FETUS INDICATIONS: Follow up from previous exam OUTSIDE/PRIOR DATING DATA: Last menstrual period (LMP): 04/11/2022. LMP-based estimated date of delivery (MARIALUISA): 01/16/2023. First dating scan (date and location): 07/29/2022. Estimated date of delivery (MARIALUISA) from first dating scan: 03/10/2023. The calculations are made using the ultrasound MARIALUISA of 03/10/2023. TECHNIQUE: Real-time scanning was performed of the fetus, with image documentation. COMPARISON: [facility], OB FOLLOW UP, 01/19/2023, 17:11. [facility], OB FOLLOW UP, 11/13/2022, 15:52. [facility], US OB >= 14 WEEKS FETUS, 10/23/2022, 13:00. FINDINGS: General: A single live intrauterine gestation is present. Presentation: Cephalic. Placenta: Placental position is posterior, without previa. Amniotic fluid index: 12.8 cm, normal range is 5-24 cm. Single deepest vertical pocket is 4.2 cm. heart rate: 155 beats per minute. Maternal cervical canal: 4.4 cm long. Normal lower limit is 2.5 cm. The previously seen area of nonvascular hemorrhage along the margin of the placenta is much smaller, now measuring 1.5 x 1.8 x 1.6 cm. The right kidney is within normal limits. The left kidney demonstrates hydronephrosis with a prominent ureter, with the left renal pelvis measuring 1.1 cm. The proximal ureter measures 0.4 cm. The mid ureter measure 0.5 cm. The distal ureter is not well seen. IMPRESSION: Improved periplacental hemorrhage. Continued left-sided hydronephrosis. We strive to produce accurate, complete, and clear reports of imaging services. To assist us in improving patient care, this report was composed using standard report templates and voice recognition software. Therefore, it may contain abnormal punctuation, insertions and/or omissions. Occasional wrong-word or sound-alike substitutions may occur. Though we review the report and make efforts to correct it, we do recommend that the report be read carefully in proper context to recognize any text inaccuracies. Dictated by: Shiv Fatima M.D. on 01/25/2023 at 8:13 Approved by: Shiv Fatima M.D. on 01/25/2023 at 8:17
--- NOTE | 2023-01-25 08:30 | PM.OBTRLD ---
Visit Information Visit Information Date of evaluation: 01/25/23 Reason for Evaluation: Yes non-stress test, Yes pre-term labor and Yes rule out labor Comments/Additional reasons for admission: Patient is a 22 yo at 33w5d who presented to OB triage for concern of contractions. Patient follows with full fashioned garment knitter and plans to deliver at birthing center. is complicated by hx of substance use (sober greater than 1 year), placental kohli, and left sided hydronephrosis. Because of placental abnormality, she was told by full fashioned garment knitter to come in for any signs of labor. Patient reports mild irregular contractions overnight. Denies vaginal bleeding or loss of fluid. [facility] Medical History (Updated 11/09/22 @ 19:23 by Mackenzie Buckley, AUDELIA, INTELLIGENCE APPLICATIONS) Polysubstance abuse Nystagmus Vaginal delivery (~09/30/21) Chronic thoracic back pain Pes planus of both feet Segmental and somatic dysfunction of abdomen and other regions Sacral region somatic dysfunction Pelvic somatic dysfunction Lumbar region somatic dysfunction Upper extremity somatic dysfunction Thoracic region somatic dysfunction Cervical somatic dysfunction Bilateral shoulder pain Low back pain during in third trimester Acute UTI Headache Anemia in preg-unspec Peripheral neuropathy (~2017) Anemia Gonorrhea (~2020) Hypertension (~2017) Substance abuse (~2015) Manic-depression Depression (10/23/15) Anxiety (10/23/15) Migraine without status migrainosus, not intractable (10/23/15) Surgical History (Updated 07/09/22 @ 14:48 by Saida Lopez RN) Anesthesia History of eye surgery Family History (Updated 07/09/22 @ 14:51 by Saida Lopez RN) Father Diabetes mellitus Hypertension Depression Family estrangement Mother Mental health problem Depression Brother Depression Anxiety Sister Anxiety Depression Grandfather Cancer of kidney Grandmother Diabetes mellitus Hypertension Hyperlipidemia Grandfather Stomach cancer Alcoholism Grandmother Alcoholism Social History marital status: unmarried,living together details: father will be involved number of children: 1 household members: significant other, family (s/o's parents) and children lives independently: Yes caregiver/support person: Yes housing: house pets and animals: Yes (2 dogs) education level: other (to 11th grade) occupational status: unemployed current occupational exposures/hazards: No special petar needs: No travel history: over 6 months ago seatbelt use: always water heater temp set < 120 deg: Yes working smoke detector in home: Yes fire extinguisher in home: Yes carbon monox detector in home: Yes firearms in home: No do you feel safe at home: Yes Smoking Status: Former smoker (quit early 2021 in 1st ) Tobacco: How many years used: 7 quit status: quit date established (04/17/21) second hand exposure: No alcohol intake: former substance use type: former substance user during the past year weight has: other (baby ~9 months old) well-balanced diet: daily or most days daily servings fruits/ve-4 caffeine: No Type(s) of exercise: walking Evaluation Evaluation Baseline heart rate: 150 Variability: Moderate (11-25) monitor accelerations: Present Monitor Decelerations: Absent Contraction Frequency (minutes): 0 Category of Tracing: Reactive Status: Category l Diagnosis, Plan/Disposition Plan/Disposition Plan: Ultrasound was obtained. Verbal sign out was that placental venous kohli was resolving from previous US on 01/19. hydronephrosis persists. Cervical length approximately 4cm. NST reactive without contractions. Patient reports feeling well and verbalized understanding of return precautions. -return to OB triage for painful, regular contractions, LOF, or vaginal bleeding -recommend US of kidneys within first 24 hours of life if no urination, otherwise recommend US at 6 weeks of life for left sided hydronephrosis OB Disposition: home
== END 2023-01-25 08:20 | disposition home or self-care (01) ==
LOC: OB 01-26 11:56
PROVIDERS: Referring Provider Student in an Organized Health Care Education/Training Program; Visit Provider Student in an Organized Health Care Education/Training Program
DX: O47.03 False labor before 37 completed weeks of gestation, third trimester (principal); Z3A.33 33 weeks gestation of pregnancy; O35.EXX0 Maternal care for other (suspected) fetal abnormality and damage, fetal genitourinary anomalies, not applicable or unspecified
CPT/HCPCS: 59025; 76811; G0378; G0379

== ENCOUNTER → 2023-02-11 11:57 | Outpatient (CLI) | payer OTHER, MEDICAID, SELFPAY ==
--- NOTE | 2023-02-11 11:58 | DI.US.S_ITS ---
PROCEDURE: US OB FOLLOW UP INDICATIONS: FOLLOW UP ON KIDNEYS OUTSIDE/PRIOR DATING DATA: Last menstrual period (LMP): 04/11/2022. LMP-based estimated date of delivery (MARIALUISA): 01/16/2023. First dating scan (date and location): 07/29/2022. Estimated date of delivery (MARIALUISA) from first dating scan: 03/10/2023. The calculations are made using the ultrasound MARIALUISA of 03/10/23. TECHNIQUE: Real-time scanning was performed of the fetus, with image documentation. Endovaginal scanning: Not performed COMPARISON: [facility], , OB FOLLOW UP, 01/19/2023, 17:11. FINDINGS: A single living intrauterine gestation is present. Presentation: Vertex. Placenta: Placental position is posterior, without previa. Amniotic fluid index: 13.6 cm, normal range is 5-24 cm. Single deepest vertical pocket is 4.5 cm. heart rate: 157 beats per minute. Maternal cervical canal: Not seen at late stage of . Estimated gestational age from initial scan: 36 weeks 1 day There continues to be left hydronephrosis and dilatation of the proximal left ureter. The left renal pelvis measures 1.6 cm. The proximal left ureter measures 0.7 cm. The subchorionic hemorrhage is stable, small. It measures 1.9 x 1.6 x 1.7 cm. IMPRESSION: 1. Living late 3rd trimester intrauterine . 2. Continued left hydronephrosis and left hydroureter. 3. Subchorionic hemorrhage is still visible, stable and small, measuring 1.9 x 1.6 x 1.7 cm. Dictated by: Hitesh Forrest M.D. on 02/11/2023 at 15:36 Approved by: Hietsh Forrest M.D. on 02/11/2023 at 16:17
== END ==
PROVIDERS: Referring Provider Midwife; Visit Provider Midwife
DX: Z36.2 Encounter for other antenatal screening follow-up (principal); O46.8X3 Other antepartum hemorrhage, third trimester; Z3A.36 36 weeks gestation of pregnancy
CPT/HCPCS: 76816

== ENCOUNTER 2023-11-25 15:40 | Emergency (ER) | payer OTHER, MEDICAID, SELFPAY ==
[2023-11-25 15:46] VITALS: BP 118/74; PULSE 82; RESP 18; TEMP 36.9; O2SAT 98; BMI 39.5
--- NOTE | 2023-11-25 16:22 | ED_ITS ---
<Statement entered by Zi Blum, - 11/25/23 20:42> Dr. Blum: I was immediately available in the department for consultation. Documentation has been reviewed. I agree with assessment and plan. HPI - Abdominal Pain General Chief Complaint: Abdominal Pain Stated Complaint: poss hernia, discomfort using bathroom Time Seen by Provider: 11/25/23 16:22 Source: patient Mode of arrival: Ambulatory History of Present Illness HPI narrative: 23-year-old female presents today with constipation, and concerns for possible left inguinal hernia. She is vaginal delivery as of March and has been seeing a pelvic floor therapist, and is experiencing a little bit increase in discomfort, she points to her left lower abdomen. She states her PCP also ordered an outpatient ultrasound to check for inguinal hernia but that has not been performed. Her last bowel movement was an hour ago she described it as hard and dry, prior to that she had 1 this morning, her regular bowel pattern is once daily. She is denying any vaginal complaints, no urinary symptoms, no nausea, no vomiting, no back or flank pain. She has had no abdominal surgeries. She is currently and has not had a menstrual cycle but takes home tests which have all been negative. She does go to the gym but she is denying any specific injury, the pain comes and goes and has been for about 1 month. No treatment tried such as any enemas or stool softeners. She denies any difficulty breathing, chest pain, disruption during sleep. All other systems are reviewed and are negative. History is significant for GERD without esophagitis, PID in 2019, pelvic somatic dysfunction, sacral regional somatic dysfunction, segmental and somatic dysfunction of abdomen, chronic thoracic back pain, anal fissure, previous opioid abuse and methamphetamine use. Related Data Home Medications Medication Instructions Recorded Confirmed vitamins no.42-folate See Rx Instructions .Route .COMPLEX 03/25/21 07/09/22 comb.no.6 1 mg chewable tablet Allergies Allergy/AdvReac Type Severity Reaction Status Date / Time No Known Drug Allergies Allergy Verified 07/09/22 14:38 Review of Systems Review of Systems Narrative: All other systems reviewed and are negative. Patient History Medical History Polysubstance abuse Nystagmus Vaginal delivery (~09/30/21) Chronic thoracic back pain Pes planus of both feet Segmental and somatic dysfunction of abdomen and other regions Sacral region somatic dysfunction Pelvic somatic dysfunction Lumbar region somatic dysfunction Upper extremity somatic dysfunction Thoracic region somatic dysfunction Cervical somatic dysfunction Bilateral shoulder pain Low back pain during in third trimester Acute UTI Headache Anemia in preg-unspec Peripheral neuropathy (~2017) Anemia Gonorrhea (~2020) Hypertension (~2017) Substance abuse (~2015) Manic-depression Depression (10/23/15) Anxiety (10/23/15) Migraine without status migrainosus, not intractable (10/23/15) Surgical History Anesthesia History of eye surgery Family History Father Diabetes mellitus Hypertension Depression Family estrangement Mother Mental health problem Depression Brother Depression Anxiety Sister Anxiety Depression Grandfather Cancer of kidney Grandmother Diabetes mellitus Hypertension Hyperlipidemia Grandfather Stomach cancer Alcoholism Grandmother Alcoholism Social History marital status: unmarried,living together details: father will be involved number of children: 1 household members: significant other, family (s/o's parents) and children lives independently: Yes caregiver/support person: Yes housing: house pets and animals: Yes (2 dogs) education level: other (to 11th grade) occupational status: unemployed current occupational exposures/hazards: No special petar needs: No travel history: over 6 months ago seatbelt use: always water heater temp set < 120 deg: Yes working smoke detector in home: Yes fire extinguisher in home: Yes carbon monox detector in home: Yes firearms in home: No do you feel safe at home: Yes Smoking Status: Former smoker Tobacco: How many years used: 7 quit status: quit date established (04/17/21) second hand exposure: No alcohol intake: former substance use type: former substance user during the past year weight has: other (baby ~9 months old) well-balanced diet: daily or most days daily servings fruits/ve-4 caffeine: No Type(s) of exercise: walking Smoking Status: Former smoker alcohol intake frequency: 0-2 drinks per day Substance Use Type: marijuana Exam Initial Vital Signs Initial Vital Signs: Vital Signs Temperature 98.5 F 11/25/23 15:46 Pulse Rate 82 11/25/23 15:46 Respiratory Rate 18 11/25/23 15:46 Blood Pressure 118/74 11/25/23 15:46 Pulse Oximetry 98 11/25/23 15:46 Oxygen Delivery Method Room Air 11/25/23 15:46 Vital signs reviewed and are normal. Const Other: Smiling, seated, no distress. Alert and oriented x4. Neck Neck: normal visual inspection, full ROM, no meningeal signs, trachea midline and supple Resp Effort & Inspection: normal respiratory effort and able to speak in complete sentences Auscultation: clear to auscultation bilaterally, no rales, no rhonchi and no wheezes Cardio Rate: regular rate Rhythm: regular rhythm GI Inspection: normal to inspection, no abdominal wall ecchymosis, non-distended, large pannus, obesity, no scars, striae, no visible herniation and no visible pulsation Palpation: soft, no hepatosplenomegaly, No guarding, No hernia, No mass and other Percussion: normal to percussion Auscultation: no hyperactive bowel sounds and normoactive bowel sounds Rectal Exam: visual inspection normal, normal sphincter tone, No fecal impaction, No mass and tenderness Other: Left lower quadrant focal tenderness, no appreciable mass, no guarding, negative McBurney's point, guaiac negative stool. Rectal exam was tender more so on the left and sacral region, no mass. Skin General: no rashes or lesions noted, elasticity normal and turgor normal Course Orders Ordered: ED Orders 11/25/23 16:40 Urine Microscopic Stat 11/25/23 16:52 Complete Blood Count AUTO DIFF Stat Comprehensive Metabolic Panel Stat Lipase Stat 11/25/23 16:57 CT abdomen pelvis wo con Stat Consultations Consultation #1: Discussed this patient with ED attending Dr. Price. Vital Signs Vital signs: Vital Signs - 8 hr 11/25/23 15:46 Temperature 98.5 F Pulse Rate 82 Respiratory Rate 18 Blood Pressure 118/74 Pulse Oximetry 98 Oxygen Delivery Method Room Air MDM - Abdominal Pain Lab Data Lab results narrative: CBC white blood cell count of 14.3 normal differential, automated neutrophil count of 8000, CMP normal, lipase normal, POC urine normal and urine hCG 11/25/23 16:52 11/25/23 16:52 Labs: Lab Results 11/25/23 11/25/23 Range/Units 16:40 16:52 WBC 14.3 H (4.5-11.0) X10^3/uL RBC 4.59 (4.0-5.2) X10^6/uL Hgb 13.1 (12.0-16.0) g/dL Hct 38.9 (36-46) % MCV 84.9 (80-100) fL MCH 28.5 (26-34) PG MCHC 33.6 (30-36) % RDW 13.7 (11.6-14.8) % Plt Count 227 (150-400) X10^3/uL Neut % (Auto) 56.1 (50-75) % Lymph % (Auto) 35.9 (25-40) % [place] % (Auto) 5.9 (3-14) % Eos % (Auto) 1.6 L (2-4) % Baso % (Auto) 0.5 (0-2) % Neut # (Auto) 8000 H (7027-6897) /uL Lymph # (Auto) 5100 H (0085-3154) /uL [place] # (Auto) 800 (0-900) /uL Eos # (Auto) 200 (0-450) /uL Baso # (Auto) 100 (0-100) /uL RBC Morphology Normal morphology Sodium 140 (137-145) mmol/L Potassium 4.1 (3.4-5.1) mmol/L Chloride 107 (98-107) mmol/L Carbon Dioxide 20 L (22-32) mmol/L BUN 18 H (7-17) mg/dL Creatinine 0.73 (0.52-1.04) mg/dL Estimated GFR > 60 (>60) mL/min BUN/Creatinine Ratio 24.7 H (6-22) Glucose 85 (70-100) mg/dL Calcium 10.1 (8.4-10.2) mg/dL Total Bilirubin 0.7 (0.2-1.3) mg/dL AST 27 (14-36) IU/L ALT 27 (<35) IU/L Alkaline Phosphatase 91 (38-126) U/L Total Protein 8.2 (6.3-8.2) g/dL Albumin 5.0 (3.5-5.0) g/dL Globulin 3.2 (1.7-4.1) g/dL Albumin/Globulin Ratio 1.6 (1.0-2.8) Lipase 51 (23-300) U/L Urine RBC 1-5/hpf (0-5/HPF) Urine WBC None seen (0-5/HPF) Ur Squamous Epith Cells 0-1 /hpf (0-5/HPF) Urine Bacteria None seen (None) Ur Culture Indicated? Cult not indicated Vol Urine Centrifuged 10ml (spun) Point of care testing: Point of Care Testing Test Results Negative Urine Dip Bedside Urine Glucose Negative Bedside Urine Bilirubin - Negative Bedside Urine Ketone - Negative Urine Specific [place] 1.025 Bedside Urine Occult Blood + Bedside Urine pH 6.0 Bedside Urine Protein - Negative Bedside Urine Urobilinogen - Negative Bedside Urine Nitrite - Negative Bedside Urine Leukocytes - Negative Esterase Imaging Data CT scan - abdomen/pelvis: My Impression: Deferred to radiologist's interpretation below Radiologist's Impression: PROCEDURE: CT ABDOMEN PELVIS WO CON INDICATIONS: LLQ pain with constipation x 1 month TECHNIQUE: Axial sections were acquired from the lung bases to the pubic symphysis. Coronal and sagittal reformats were performed. For radiation dose reduction, the following was used: automated exposure control, adjustment of mA and/or kV according to patient size. COMPARISON: None. FINDINGS: Image quality: Diagnostic. Lower Chest: No significant findings. URINARY: Right Kidney: No stones or hydronephrosis. Right Ureter: No hydroureter. Left Kidney: No stones or hydronephrosis. Left Ureter: No hydroureter. Bladder: Normal wall thickness. No stones. ABDOMEN: Liver: No contour-deforming solid mass. Gallbladder: No radiopaque gallstones or wall thickening. Biliary ducts: No biliary dilation. Pancreas: No ductal dilation. Spleen: Size is within normal limits. Adrenal Glands: No adrenal nodules. Stomach and Bowel: Apparent bowel wall thickening in the distal transverse, descending, and sigmoid colon may be related to underdistention versus a nonspecific colitis. Normal appendix. Small bowel loops and stomach are unremarkable. Peritoneum: No abnormal intraperitoneal fluid. No free air. Ventral Wall: Tiny fat containing periumbilical hernia. Abdominal Nodes: No enlarged retroperitoneal or mesenteric lymph nodes. Vessels: Aorta and inferior vena cava are normal in size. PELVIS: Pelvic Organs: Retroverted uterus. No suspicious adnexal mass.. Pelvic Nodes: Unremarkable. Miscellaneous: No inguinal hernias are seen. Bones: Unremarkable. IMPRESSION: Bowel wall thickening in the distal transverse, descending and sigmoid colon may be related to underdistention versus a mild nonspecific colitis. Otherwise, no acute abnormality identified in the abdomen or pelvis. No renal calculus or hydronephrosis. Approved by: Chris Evans M.D. on 11/25/2023 at 17:33 MDM Narrative Medical decision making narrative: Left lower intermittent abdominal discomfort with associated dry stools today and a little bit of constipation, CT scan showed some bowel wall thickening involving the distal transverse descending and sigmoid colon which may represent a mild nonspecific colitis. Discussed the case with the attending Dr. Price who concurs with discharge plan and emergency department return instructions below. Reassured the patient there is no evidence of any hernia, her lab work was otherwise normal, she feels happy about this, I have asked her to follow up with her PCP and to call their office or send a [employer] message tomorrow morning for follow-up. She may warrant colonoscopy or additional workup if her symptoms do not resolve. We discussed red flag warning signs and to seek medical attention if anything changes or she develops any new worrisome symptoms. I have asked her to keep her diet light and liquidy for the next 24-48 hours. Discharge Plan Departure Patient Disposition: Home Clinical Impression: Abdominal pain, LLQ (left lower quadrant) Instructions: DI for Abdominal Pain-Adult Activity Restrictions/Additional Instructions: Your CT scan showed no evidence of any hernia, it did show some nonspecific bowel wall thickening involving the area of your pain. This could represent a mild nonspecific colitis. Blood work was also normal except for a slight elevation in your white blood cell count of 14.3 which could be from the inflammation. Your urine test was normal and your urine test was negative. I would like you to contact your PCP and schedule a follow up appointment. If anything worsens or you develop any new worrisome symptoms please return to the emergency department at this point you may use Tylenol for pain, you could try heating pad, keep your diet light for the next 24-48 hours and do some clear liquids and allow any residual stool to pass. Prescriptions: No Action vit no.42-folate no.6 1 mg tablet,chewable See Rx Instructions .ROUTE .COMPLEX Rx Instructions: Take as prescribed. Referrals: Yelitza Bonilla LM [Primary Care Provider] - Stand Alone Forms: Patient Portal/API
--- NOTE | 2023-11-25 16:57 | DI.CT.S_ITS ---
PROCEDURE: CT ABDOMEN PELVIS WO CON INDICATIONS: LLQ pain with constipation x 1 month TECHNIQUE: Axial sections were acquired from the lung bases to the pubic symphysis. Coronal and sagittal reformats were performed. For radiation dose reduction, the following was used: automated exposure control, adjustment of mA and/or kV according to patient size. COMPARISON: None. FINDINGS: Image quality: Diagnostic. Lower Chest: No significant findings. URINARY: Right Kidney: No stones or hydronephrosis. Right Ureter: No hydroureter. Left Kidney: No stones or hydronephrosis. Left Ureter: No hydroureter. Bladder: Normal wall thickness. No stones. ABDOMEN: Liver: No contour-deforming solid mass. Gallbladder: No radiopaque gallstones or wall thickening. Biliary ducts: No biliary dilation. Pancreas: No ductal dilation. Spleen: Size is within normal limits. Adrenal Glands: No adrenal nodules. Stomach and Bowel: Apparent bowel wall thickening in the distal transverse, descending, and sigmoid colon may be related to underdistention versus a nonspecific colitis. Normal appendix. Small bowel loops and stomach are unremarkable. Peritoneum: No abnormal intraperitoneal fluid. No free air. Ventral Wall: Tiny fat containing periumbilical hernia. Abdominal Nodes: No enlarged retroperitoneal or mesenteric lymph nodes. Vessels: Aorta and inferior vena cava are normal in size. PELVIS: Pelvic Organs: Retroverted uterus. No suspicious adnexal mass.. Pelvic Nodes: Unremarkable. Miscellaneous: No inguinal hernias are seen. Bones: Unremarkable. IMPRESSION: Bowel wall thickening in the distal transverse, descending and sigmoid colon may be related to underdistention versus a mild nonspecific colitis. Otherwise, no acute abnormality identified in the abdomen or pelvis. No renal calculus or hydronephrosis. Approved by: Chris Evans M.D. on 11/25/2023 at 17:33
[2023-11-25 17:13] LABS: Alanine Aminotransferase 27 IU/L (<35); Albumin Globulin Ratio 1.6 (1.0-2.8); Alkaline Phosphatase 91 U/L (38-126); Aspartate Aminotransferase 27 IU/L (14-36); BUN Creatinine Ratio 24.7 (6-22); Bilirubin Total 0.7 mg/dL (0.2-1.3); Blood Urea Nitrogen 18 mg/dL (7-17); Calcium 10.1 mg/dL (8.4-10.2); Carbon Dioxide 20 mmol/L (22-32); Chloride 107 mmol/L (98-107); Estimated Glomerular Filt Rate > 60 mL/min (>60); Globulin 3.2 g/dL (1.7-4.1); Glucose 85 mg/dL (70-100); Lipase 51 U/L (23-300); Potassium 4.1 mmol/L (3.4-5.1); Sodium 140 mmol/L (137-145); Total Protein 8.2 g/dL (6.3-8.2)
[2023-11-25 17:14] LABS: HEMOLYSIS 53 (0-50)
[2023-11-25 17:16] LABS: RBC Urine 1-5/HPF (0-5/HPF); Urine Volume 10mL (spun); WBC Urine None Seen (0-5/HPF)
[2023-11-25 17:16] LABS: Basophils Absolute Auto 100 /uL (0-100); Basophils Percent Auto 0.5 % (0-2); Eosinophils Absolute Auto 200 /uL (0-450); Eosinophils Percent Auto 1.6 % (2-4); Hematocrit 38.9 % (36-46); Hemoglobin 13.1 g/dL (12.0-16.0); Lymphocytes Absolute Auto 5100 /uL (1100-4500); Lymphocytes Percent Auto 35.9 % (25-40); Mean Corpuscular HGB Conc 33.6 % (30-36); Mean Corpuscular Hemoglobin 28.5 PG (26-34); Mean Corpuscular Volume 84.9 fL (80-100); Monocytes Absolute Auto 800 /uL (0-900); Monocytes Percent Auto 5.9 % (3-14); Neutrophils Absolute Auto 8000 /uL (1500-7000); Neutrophils Percent Auto 56.1 % (50-75); Platelet Count 227 X10^3/uL (150-400); Red Blood Cell Count 4.59 X10^6/uL (4.0-5.2); Red Cell Distribution Width 13.7 % (11.6-14.8); White Blood Cell Count 14.3 X10^3/uL (4.5-11.0)
[2023-11-25 17:17] LABS: Bacteria Urine None Seen; Culture Indicated Urine Cult Not Indicated; Squamous Epithelial Cell Urine 0-1 /HPF (0-5/HPF)
[2023-11-25 17:30] LABS: Add Manual Diff / Slide Review SLIDE REVIEW
[2023-11-25 17:32] LABS: RBC Morphology Normal Morphology
[2023-11-25 18:45] VITALS: BP 103/59; PULSE 78; RESP 14; O2SAT 97
== END 2023-11-25 18:47 | disposition home or self-care (01) ==
PROVIDERS: Emergency Provider Physician Assistant Medical; Family Provider Midwife; PCP Midwife
DX: R10.32 Left lower quadrant pain (principal); K59.00 Constipation, unspecified
CPT/HCPCS: 74176; 80053; 81003; 81015; 81025; 83690; 85025; 99282; 99284

== ENCOUNTER 2023-12-08 10:45 | Outpatient (RCR) | payer OTHER, MEDICAID, SELFPAY ==
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
--- NOTE | 2023-10-26 09:27 | PT-OP ANOTE ---
Per phone, pt states her kids are sick with vomit & diahrrea so she meant to call but just got busy. Pt apologetic about not calling.
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
--- NOTE | 2023-12-22 14:03 | PT-OP ANOTE ---
Tried contacting pt by phone to notify of missed appt, but pt's mailbox was full. No message could be left.
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
--- NOTE | 2023-12-30 15:27 | PT.OPDS ---
Current Diagnoses Low back pain, unspecified (12/08/23) Separation of muscle (nontraumatic), other site (12/08/23) Muscle weakness (generalized) (12/08/23) Mixed incontinence (12/08/23) Other specified urinary incontinence (12/08/23) Encounter for routine follow-up (12/08/23) Visit Care Team Role Provider Type Yelitza Bonilla LM Attending Provider Non-Staff Family Provider Primary Care Provider Referring Provider Specialty: Medical Address: [address] [place] [address] B, [place], [address] Email: Visit Number Visit Number 07/02 Discharge Summary PT-OP-B Current Condition Start: 10/09/23 19:58 Freq: Status: Active Protocol: Document 10/13/23 07:33 LRN (Rec: 10/13/23 08:22 LRN [id number]) Current Condition History of Current Condition Onset Date DA 03/15/23, son in 09/28/21 Current Complaints Urinary incontinence and abdomen not normal. History of Current Condition UI since DA born 03/15/23. 2 children of vaginal . 3G/ 2P. Pt states urinary incontinence started after the of her 2nd child, but has since improved a little bit. States she can't hold her urine at all and when she leaks it is a very small amount. She repors her recent was fast and under 2 hrs of labor, starting on her back and ending on her hands/ knees. She reports tearing with her first child, but not with the recent . Pt states she is exercising at a gym 3-4x/week (no exercise before ) doing treadmill and hip exercise. both children. During son's had R hip pain and between shoulder blades; R hip/LBP persists. Treatment Goals Patient/Caregiver Goals Pt goal: Work on incontinence and have resolution of incontinence. Core work. HEP. Personal Factors Other Personal Factors That May Effect Was being seen for L hip pain Therapy/Recovery during first son's . Started a new exercise routine post- at a gym. Currently baby and son born son in 09/28/21. PT-OP-C Subjective Start: 10/09/23 19:58 Freq: Status: Active Protocol: Document 12/08/23 10:50 LRN (Rec: 12/08/23 11:34 LRN [id number]) OP-PT Subjective Patient Comments Patient Comments States she went to see doctor and was scheduled for ultrasound, but due to trouble having BM in ER had CT scan and found to have inflamed lower bowels. Treatment was changing diet (more fiber, decr dairy intake), the next day had BM and L groin pain resolved. Today no c/o L groin/lower abdominal pain. States she started menstrating (but is still ) and has had abdominal cramping so leakage started getting worse. Before menstruating she reports hardly leaking at all. She is using condoms because control meds cause cysts. She has been leaning forward after urinating in order to stop the urinary leakage on standing after voiding. PT-OP-I Pelvic Floor Start: 10/09/23 19:58 Freq: Status: Active Protocol: Document 12/08/23 10:50 LRN (Rec: 12/08/23 11:34 LRN [id number]) Pelvic Floor Assessment Pelvic Clock Pelvic Clock Other Tender Pelvic clock before STM at 2-7. Tender Pelvic clock after STM at 2, 4, 5-7 Prolapse Cystocele Grade 1 Perineal Descent Resting Absent Bearing Absent Comments Pelvic Floor Comments Mild increase redness on L side of perineum. Tender on L inner and outer labia majora. Held testing of PF contraction strength due to pain with palpation and not able to fully relax PF, and because pt on period. PT-OP-J Posture/Palpation/Skin Start: 10/09/23 19:58 Freq: Status: Active Protocol: Document 10/13/23 07:33 LRN (Rec: 10/13/23 08:22 LRN [id number]) Posture Evaluation Position Standing Head/C-Spine Posture Forward Head L-Spine Posture Increased Lordosis Scapula Posture (L) Elevated Pelvis Posture Anteriorly Tilted Hip Posture (L) Externally Rotated,(R) Externally Rotated Knee Posture (L) Genu Valgus,(R) Genu Valgus Ankle/Foot Posture (L) Calcaneal Inversion,(R) Calcaneal Inversion Foot Arch (L) No Arch,(R) No Arch Comments Posture Comments Sitting: L ankle IV's, R ankle Ev's mildly and both PF. Standing: R hip ER>L hip. Palpation Assessment Location Pubic Symphysis Palpation Location Pubic Symphysis pain with palpation. Palpation Findings Tenderness ABdomen Palpation Location Abdomen - DR Palpation Details Umbilicus 3 above: Closed Umbilicus 2 above: 0.5 finger widths & shallow Umbilicus 1 above: 1.5 finger widths Umbilicus Umbilicus: 1 below: 1.5 finger widths Umbilicus: 2 below: Closed Low Back Palpation Location L PSIS Palpation Details L posterior and high. PT-OP-K Range of Motion Start: 10/09/23 19:58 Freq: Status: Active Protocol: Document 10/13/23 07:33 LRN (Rec: 10/13/23 08:22 LRN [id number]) Lumbar Spine Range of Motion Lumbar Spine Active Degrees Testing Position Standing Flexion 50 Extension 22 Rotation Left 45 Rotation Right 15 Lateral Flexion Left 33 Lateral Flexion Right 15 ROM Limitations Pain Comments R SIJ pain with palpation. Hip Goniometric Range of Motion Hip Right Passive Testing Position Supine Internal Rotation 40 External Rotation 60 Left Passive Testing Position Supine Internal Rotation 35 External Rotation 85 PT-OP-M Strength Start: 10/09/23 19:58 Freq: Status: Active Protocol: Document 10/13/23 07:33 LRN (Rec: 10/13/23 08:22 LRN [id number]) Trunk Strength Trunk Manual Muscle Testing Core Stabilization Abdominal doming, fair core stability with hip MMT, except loss of rotational stability with prone hip extension. Hip Strength Hip Manual Muscle Testing Right Extension (S1) 4 Good Adduction 2+ Poor+ Comments Strength is 5/5 except as indicated above. Left Extension (S1) 4 Good Comments Strength is 5/5 except as indicated above. Hip AB - Pain in LB. PT-OP-T Assessment and Plan Start: 10/09/23 19:58 Freq: Status: Active Protocol: Document 12/30/23 15:14 LRN (Rec: 12/30/23 15:27 LRN [id number]) Physical Therapy Assessment Goals Three Impairment Decreased core stability with DR present. Short Term Goal (STG) Pt education in DR protection using towel for support to DR with transfers and Pt will be educated in proper sitting/ standing posture and educated in proper body mechanics for ADLs and exercise. 11/02/23: Pt educated in proper body mechanics for ADLs and with exercise. Transfers w/DR not needed due to DR within normal limits. STG Duration 11/24/23 progressed 11/02/23 (need posture trng) [facility] Goal (LTG) Strength core to improve stability (feeling of hanging out) and decrease DR, with greater reduction expected to occur 6 months after stopped (due to hormonal changes). 11/02/23: DR Below umbilicus: 1 - 1 finger width, 2 - 1/ 2 fingerwidth 3 and below edge of rectus not felt. Above umbilicus: 1 above - 1. 5 finger widths, 2 above - 0. 5 finger widths & shallow, 3 above - Closed. LTG Duration 01/15/24 progressed: (monitor above umbilicus, core strength) Two Impairment Mixed urinary incontinence with cough, sneeze, lifting, ex, & sudden urge. Short Term Goal (STG) Improve PF strength with occasional urinary leakage with stress to PF (cough) and pt able to defer urination with onset of a sudden urge. STG Duration 11/24/23 (12/30/23: GOAL NOT MET) [facility] Goal (LTG) Strengthen the PF with pt able to cough, sneeze, lift and exercise without urinary leakage. LTG Duration 01/15/24 (12/30/23: GOAL NOT MET) One Impairment Lacks appropriate self care HEP. Short Term Goal (STG) Pt educated in proper methods for transfer with coordination of breathing/Kegel with functional activities for core pressure management. 11/02/23: Pt educated and handout issued for coordination of breath/Kegel with transfers. STG Duration 11/24/23 (11/02/23: MET GOAL) [facility] Goal (LTG) Pt will be independent in a self care HEP for PF strengthening. Trunk AROM flex, R rot/SB; hip ROM L>R IR & R hip ER; Strengthening of TA/rotators (minimize DR) & Hip Ext/R hip AD. 10/18/08: HEP: TA heel slide, happy baby pose, bladder diary. 11/02/23: Handout for proper ADL body mechanics, HEP: 4 pt TA, Sit Back child's pose. LTG Duration 01/15/24 progressing (12/30/23: Partially met goal) Assessment Summary Assessment Pt is a 23 year old female being seen for mixed urinary incontinence w/o bowel involvment since 03/15/23 of 2nd child, mild DR around umbilicus, and lower abdominal /R SIJ pain, weakness of lower abdomen/hips, & decr'd trunk/ hip mobility. The pt has been seen for 5 visits since 10/12 due to clinic scheduling difficulties and pt no shows . The pt was able to make small progress towards her goals, and was only able to meet only one goal. The patient would benefit from further skilled physical therapy but because of the hospital policy, the pt is to be discharged from physical therapy for 2 consecutive no shows; therefore the pt is being discharged from physical therapy today. The pt understands she will need a new referral to return to therapy and understands the reason for her discharge. Physical Therapy Plan Discharge Physical Therapy Discharge Comments Pt did not complete her physical therapy program. See assessment above. Thank you for your referral.
== END 2024-01-01 08:55 | disposition home or self-care (01) ==
LOC: PHYS 10:45
PROVIDERS: Family Provider Midwife; PCP Midwife; Referring Provider Midwife; Visit Provider Midwife
DX: Z39.2 Encounter for routine postpartum follow-up (principal); N39.498 Other specified urinary incontinence; N39.46 Mixed incontinence; M62.08 Separation of muscle (nontraumatic), other site; M54.50 Low back pain, unspecified; M62.81 Muscle weakness (generalized)
CPT/HCPCS: 97110; 97140; 97162; 97530; 97535

== ENCOUNTER → 2023-12-16 16:16 | Outpatient (CLI) | payer OTHER, MEDICAID, SELFPAY ==
--- NOTE | 2023-12-16 16:19 | DI.RAD.S_ITS ---
PROCEDURE: XR CHEST 2V INDICATIONS: Wheezing TECHNIQUE: 2 views of the chest were acquired. COMPARISON: None. FINDINGS: Surgical changes and devices: None. Lungs and pleura: Lungs are clear. No pleural effusions or pneumothorax. Mediastinum: Mediastinal contours are normal. Heart size is normal. Bones and chest wall: No suspicious bony abnormalities. Soft tissues appear unremarkable. IMPRESSION: No acute cardiopulmonary abnormality is seen. Dictated by: Gladis Centeno M.D. on 12/16/2023 at 16:54 Approved by: Gladis Centeno M.D. on 12/16/2023 at 16:56
== END ==
PROVIDERS: Family Provider Midwife; PCP Midwife; Referring Provider Nurse Practitioner Family; Visit Provider Nurse Practitioner Family
DX: R06.2 Wheezing (principal); R68.89 Other general symptoms and signs
CPT/HCPCS: 71046

== ENCOUNTER 2024-01-30 05:57 | Emergency (ER) | payer OTHER, SELFPAY ==
[2024-01-30 06:02] VITALS: BP 118/68; PULSE 106; O2SAT 98
[2024-01-30 06:06] VITALS: BP 118/68; PULSE 106; RESP 16; TEMP 37.2; O2SAT 97; BMI 39.6
--- NOTE | 2024-01-30 06:11 | DI.RAD.S_ITS ---
PROCEDURE: XR CHEST 2V INDICATIONS: cough, fever, 3rd round of abx TECHNIQUE: 2 views of the chest were acquired. COMPARISON: , CR, XR CHEST 2V, 12/16/2023, 16:19. FINDINGS: Surgical changes and devices: None. Lungs and pleura: There is minimal infiltrate seen at lung base on the view which is felt most likely to be within the left lower lobe. No pleural effusions or pneumothorax. Mediastinum: Mediastinal contours are normal. Heart size is normal. Bones and chest wall: No suspicious bony abnormalities. Soft tissues appear unremarkable. IMPRESSION: Minimal lung base infiltrate seen. Note: No significant discrepancy from the preliminary report. Dictated by: Shiv Fatima M.D. on 01/30/2024 at 8:05 Approved by: Shiv Fatima M.D. on 01/30/2024 at 8:08
--- NOTE | 2024-01-30 06:12 | ED_ITS ---
HPI - SOB/Dyspnea <Brigida Ramos MD - Last Filed: 02/02/24 21:14> General Chief Complaint: Shortness of Breath/Dyspnea Stated Complaint: 3rd round of antibotics, fever and hard to breathe Time Seen by Provider: 01/30/24 06:11 Source: patient Mode of arrival: Ambulatory Limitations: no limitations History of Present Illness HPI Narrative: 23-year-old female with no reported past medical history presents with 3 weeks of cough, congestion, malaise. now with fevers over the last 2 days, T-max 101? at home. Patient states that she was on her 3rd round of amoxicillin. She states that when her symptoms began she had an x-ray done that was reported to be clear, But for some reason was still placed on antibiotics. She states that all 3 rounds of antibiotics have been amoxicillin. took Tylenol prior to arrival. Has also been using an inhaler at home without relief. Patient states that she feels run down and not good Related Data Home Medications Medication Instructions Recorded Confirmed vitamins no.42-folate See Rx Instructions .Route .COMPLEX 03/25/21 07/09/22 comb.no.6 1 mg chewable tablet albuterol sulfate 90 mcg/actuation 1 - 2 puff inhalation Q4-6H PRN 01/30/24 01/30/24 aerosol inhaler wheezing amoxicillin 875 mg-potassium 1 tab PO BID 01/30/24 01/30/24 clavulanate 125 mg tablet inhalational spacing device 01/30/24 01/30/24 (Sai Jemima [facility] spacer) Previous Rx's Medication Instructions Recorded doxycycline hyclate 100 mg tablet 100 mg PO BID #14 tabs 01/30/24 Allergies Allergy/AdvReac Type Severity Reaction Status Date / Time No Known Drug Allergies Allergy Verified 07/09/22 14:38 Patient History <Brigida Ramos MD - Last Filed: 02/02/24 21:14> Medical History Polysubstance abuse Nystagmus Vaginal delivery (~09/30/21) Chronic thoracic back pain Pes planus of both feet Segmental and somatic dysfunction of abdomen and other regions Sacral region somatic dysfunction Pelvic somatic dysfunction Lumbar region somatic dysfunction Upper extremity somatic dysfunction Thoracic region somatic dysfunction Cervical somatic dysfunction Bilateral shoulder pain Low back pain during in third trimester Acute UTI Headache Anemia in preg-unspec Peripheral neuropathy (~2017) Anemia Gonorrhea (~2020) Hypertension (~2017) Substance abuse (~2015) Manic-depression Depression (10/23/15) Anxiety (10/23/15) Migraine without status migrainosus, not intractable (10/23/15) Surgical History Anesthesia History of eye surgery Family History Father Diabetes mellitus Hypertension Depression Family estrangement Mother Mental health problem Depression Brother Depression Anxiety Sister Anxiety Depression Grandfather Cancer of kidney Grandmother Diabetes mellitus Hypertension Hyperlipidemia Grandfather Stomach cancer Alcoholism Grandmother Alcoholism Social History marital status: unmarried,living together details: father will be involved number of children: 1 household members: significant other, family (s/o's parents) and children lives independently: Yes caregiver/support person: Yes housing: house pets and animals: Yes (2 dogs) education level: other (to 11th grade) occupational status: unemployed current occupational exposures/hazards: No special petar needs: No travel history: over 6 months ago seatbelt use: always water heater temp set < 120 deg: Yes working smoke detector in home: Yes fire extinguisher in home: Yes carbon monox detector in home: Yes firearms in home: No do you feel safe at home: Yes Smoking Status: Former smoker Tobacco: How many years used: 7 quit status: quit date established (04/17/21) second hand exposure: No alcohol intake: former substance use type: former substance user during the past year weight has: other (baby ~9 months old) well-balanced diet: daily or most days daily servings fruits/ve-4 caffeine: No Type(s) of exercise: walking Smoking Status: Former smoker alcohol intake frequency: 0-2 drinks per day Exam <Birgida Ramos MD - Last Filed: 02/02/24 21:14> Initial Vital Signs Initial Vital Signs: Vital Signs Pulse Rate 106 H 01/30/24 06:02 Blood Pressure 118/68 01/30/24 06:02 Pulse Oximetry 98 01/30/24 06:02 Const: Awake, alert, no acute distress, nontoxic appearing Cardiac: tachycardia, regular rhythm RESP: unlabored, clear bilaterally, no wheezing, slight nonproductive cough when speaking Skin: Warm, Dry, intact, no rashes Neuro: AO x3, CN II-XII grossly intact, moves all extremities <Matt Hernandez MD - Last Filed: 01/30/24 10:06> Initial Vital Signs Initial Vital Signs: Vital Signs Pulse Rate 106 H 01/30/24 06:02 Blood Pressure 118/68 01/30/24 06:02 Pulse Oximetry 98 01/30/24 06:02 Course <Brigida Ramos MD - Last Filed: 02/02/24 21:14> Orders Ordered: ED Orders 01/30/24 06:11 Chest [XR chest 2V] Stat 01/30/24 06:17 CBC Auto Diff [Complete Blood Count AUTO DIFF] Stat CMP [Comprehensive Metabolic Panel] Stat 01/30/24 06:28 EKG-12 Lead Stat 01/30/24 06:30 Covid-19 + FLU A/B + RSV - PCR Stat Vital Signs Vital signs: Vital Signs - 8 hr 01/30/24 06:02 01/30/24 06:02 01/30/24 06:06 Temperature 99 F Pulse Rate 106 H 106 H Respiratory Rate 16 Blood Pressure 118/68 118/68 Pulse Oximetry 98 97 Oxygen Delivery Method Room Air 01/30/24 06:27 01/30/24 06:27 01/30/24 06:30 Temperature Pulse Rate 104 H 102 H Respiratory Rate 22 34 H Blood Pressure 127/67 Pulse Oximetry 98 98 Oxygen Delivery Method 01/30/24 06:31 01/30/24 06:31 01/30/24 07:00 Temperature Pulse Rate 104 H 96 H Respiratory Rate 25 H 18 Blood Pressure 125/73 Pulse Oximetry 98 97 Oxygen Delivery Method Room Air 01/30/24 07:00 Temperature Pulse Rate Respiratory Rate Blood Pressure 111/57 L Pulse Oximetry Oxygen Delivery Method <Matt Hernandez MD - Last Filed: 01/30/24 10:06> Orders Ordered: ED Orders 01/30/24 06:11 Chest [XR chest 2V] Stat 01/30/24 06:17 CBC Auto Diff [Complete Blood Count AUTO DIFF] Stat CMP [Comprehensive Metabolic Panel] Stat 01/30/24 06:28 EKG-12 Lead Stat 01/30/24 06:30 Covid-19 + FLU A/B + RSV - PCR Stat Vital Signs Vital signs: Vital Signs - 8 hr 01/30/24 06:02 01/30/24 06:02 01/30/24 06:06 Temperature 99 F Pulse Rate 106 H 106 H Respiratory Rate 16 Blood Pressure 118/68 118/68 Pulse Oximetry 98 97 Oxygen Delivery Method Room Air 01/30/24 06:27 01/30/24 06:27 01/30/24 06:30 Temperature Pulse Rate 104 H 102 H Respiratory Rate 22 34 H Blood Pressure 127/67 Pulse Oximetry 98 98 Oxygen Delivery Method 01/30/24 06:31 01/30/24 06:31 01/30/24 07:00 Temperature Pulse Rate 104 H 96 H Respiratory Rate 25 H 18 Blood Pressure 125/73 Pulse Oximetry 98 97 Oxygen Delivery Method Room Air 01/30/24 07:00 Temperature Pulse Rate Respiratory Rate Blood Pressure 111/57 L Pulse Oximetry Oxygen Delivery Method MDM - SOB/Dyspnea <Brigida Ramos MD - Last Filed: 02/02/24 21:14> Differential Diagnosis Differential diagnosis: Likely community acquired pneumonia, asthma with exacerbation and other (bronchitis) Lab Data 01/30/24 06:17 01/30/24 06:17 Labs: Lab Results 01/30/24 01/30/24 Range/Units 06:17 06:30 WBC 10.4 (4.5-11.0) X10^3/uL RBC 4.32 (4.0-5.2) X10^6/uL Hgb 12.2 (12.0-16.0) g/dL Hct 36.5 (36-46) % MCV 84.5 (80-100) fL MCH 28.2 (26-34) PG MCHC 33.3 (30-36) % RDW 13.5 (11.6-14.8) % Plt Count 213 (150-400) X10^3/uL Neut % (Auto) 64.7 (50-75) % Lymph % (Auto) 24.8 L (25-40) % [place] % (Auto) 9.1 (3-14) % Eos % (Auto) 0.9 L (2-4) % Baso % (Auto) 0.5 (0-2) % Neut # (Auto) 6700 (8849-1978) /uL Lymph # (Auto) 2600 (8581-1657) /uL [place] # (Auto) 900 (0-900) /uL Eos # (Auto) 100 (0-450) /uL Baso # (Auto) 100 (0-100) /uL Sodium 139 (137-145) mmol/L Potassium 3.8 (3.4-5.1) mmol/L Chloride 110 H (98-107) mmol/L Carbon Dioxide 18 L (22-32) mmol/L BUN 10 (7-17) mg/dL Creatinine 0.80 (0.52-1.04) mg/dL Estimated GFR > 60 (>60) mL/min BUN/Creatinine Ratio 12.5 (6-22) Glucose 100 (70-100) mg/dL Calcium 9.3 (8.4-10.2) mg/dL Total Bilirubin 0.4 (0.2-1.3) mg/dL AST 39 H (14-36) IU/L ALT 43 H (<35) IU/L Alkaline Phosphatase 100 (38-126) U/L Total Protein 7.6 (6.3-8.2) g/dL Albumin 4.6 (3.5-5.0) g/dL Globulin 3.0 (1.7-4.1) g/dL Albumin/Globulin Ratio 1.5 (1.0-2.8) SARS-CoV-2 (PCR) Negative (Negative) Influenza A (RT-PCR) Flu a negative (NEGATIVE) Influenza B (RT-PCR) Flu b negative (NEGATIVE) RSV (PCR) Negative (Negative) [facility] Narrative Medical decision making narrative: nontoxic appearing patient with nearly 1 month of symptoms. Insert my patient has been placed on antibiotics with normal previous x-ray. On exam patient is saturating well on room air, she was conversational without dyspnea, lungs are clear to auscultation bilaterally. Patient's symptoms seem to be more consistent with either a bronchitis type picture or viral syndrome. Due to the chronicity of patient's symptoms and no improvement with antibiotics labs will be ordered and rpt X rays taken. Laboratory work reviewed, no significant abnormalities identified. Chest x- ray read preliminarily as bronchial wall thickening with basilar infiltrate on the lateral projection likely pneumonic. No parapneumonic effusion. Hyperinflated lungs. Patient's antibiotics should be changed. Will change to augmentin and doxycycline. Doxy for short course safe in . Pending flu, COVID, RSV swabs. Care of patient is signed out to Dr. Hernandez at 7:00 a.m. 01/30/2024, 0700, David. Sign-out from Dr. Ramos, COVID/influenza swab results pending. Patient with possible pneumonia, already taking Augmentin, prescription sent for doxycycline additional antibiotic coverage. Awaiting COVID/influenza swab results. Discussed with patient, who is aware of pending results and agrees with plan. Assumed care. COVID/influenza/RSV swabs negative. Patient informed. Add doxycycline antibiotic for discharge as planned, electronic prescription already sent to her pharmacy. Discharged home as planned. <Matt Hernandez MD - Last Filed: 01/30/24 10:06> Lab Data Labs: Lab Results 01/30/24 01/30/24 Range/Units 06:17 06:30 WBC 10.4 (4.5-11.0) X10^3/uL RBC 4.32 (4.0-5.2) X10^6/uL Hgb 12.2 (12.0-16.0) g/dL Hct 36.5 (36-46) % MCV 84.5 (80-100) fL MCH 28.2 (26-34) PG MCHC 33.3 (30-36) % RDW 13.5 (11.6-14.8) % Plt Count 213 (150-400) X10^3/uL Neut % (Auto) 64.7 (50-75) % Lymph % (Auto) 24.8 L (25-40) % [place] % (Auto) 9.1 (3-14) % Eos % (Auto) 0.9 L (2-4) % Baso % (Auto) 0.5 (0-2) % Neut # (Auto) 6700 (0424-5535) /uL Lymph # (Auto) 2600 (3781-8851) /uL [place] # (Auto) 900 (0-900) /uL Eos # (Auto) 100 (0-450) /uL Baso # (Auto) 100 (0-100) /uL Sodium 139 (137-145) mmol/L Potassium 3.8 (3.4-5.1) mmol/L Chloride 110 H (98-107) mmol/L Carbon Dioxide 18 L (22-32) mmol/L BUN 10 (7-17) mg/dL Creatinine 0.80 (0.52-1.04) mg/dL Estimated GFR > 60 (>60) mL/min BUN/Creatinine Ratio 12.5 (6-22) Glucose 100 (70-100) mg/dL Calcium 9.3 (8.4-10.2) mg/dL Total Bilirubin 0.4 (0.2-1.3) mg/dL AST 39 H (14-36) IU/L ALT 43 H (<35) IU/L Alkaline Phosphatase 100 (38-126) U/L Total Protein 7.6 (6.3-8.2) g/dL Albumin 4.6 (3.5-5.0) g/dL Globulin 3.0 (1.7-4.1) g/dL Albumin/Globulin Ratio 1.5 (1.0-2.8) SARS-CoV-2 (PCR) Negative (Negative) Influenza A (RT-PCR) Flu a negative (NEGATIVE) Influenza B (RT-PCR) Flu b negative (NEGATIVE) RSV (PCR) Negative (Negative) MDM Narrative Medical decision making narrative: nontoxic appearing patient with nearly 1 month of symptoms. Insert my patient has been placed on antibiotics with normal previous x-ray. On exam patient is saturating well on room air, she was conversational without dyspnea, lungs are clear to auscultation bilaterally. Patient's symptoms seem to be more consistent with either a bronchitis type picture or viral syndrome. Due to the chronicity of patient's symptoms and no improvement with antibiotics labs will be ordered and rpt X rays taken. Laboratory work reviewed, no significant abnormalities identified. Chest x- ray read preliminarily as bronchial wall thickening with basilar infiltrate on the lateral projection likely pneumonic. No parapneumonic effusion. Hyperinflated lungs. Patient's antibiotics should be changed. Will change to augmentin and doxycycline. Doxy for short course safe in . 01/30/2024, 0700, Hernandez. Sign-out from Dr. Ramos, COVID/influenza swab results pending. Patient with possible pneumonia, already taking Augmentin, prescription sent for doxycycline additional antibiotic coverage. Awaiting COVID/influenza swab results. Discussed with patient, who is aware of pending results and agrees with plan. Assumed care. COVID/influenza/RSV swabs negative. Patient informed. Add doxycycline antibiotic for discharge as planned, electronic prescription already sent to her pharmacy. Discharged home as planned. Discharge Plan Departure Patient Disposition: Home Clinical Impression: Pneumonia Instructions: DI for Pneumonia -- Adult Prescriptions: New doxycycline hyclate 100 mg tablet 100 mg PO BID Qty: 14 0RF No Action vit no.42-folate no.6 1 mg tablet,chewable See Rx Instructions .ROUTE .COMPLEX Rx Instructions: Take as prescribed. amoxicillin-pot clavulanate 875-125 mg tablet 1 tab PO BID albuterol sulfate 90 mcg/actuation HFA aerosol inhaler 1 - 2 puff inhalation Q4-6H PRN (Reason: wheezing) (DME) Sai Onofre [facility] Spacer MISCELLANEOUS Patient Comments: For use with albuterol inhaler. Referrals: Yelitza Bonilla LM [Primary Care Provider] - Stand Alone Forms: Patient Portal/API/Survey
[2024-01-30 06:27] VITALS: BP 127/67; PULSE 104; RESP 22; O2SAT 98
[2024-01-30 06:30] VITALS: PULSE 102; RESP 34; O2SAT 98
[2024-01-30 06:31] VITALS: BP 125/73; PULSE 104; RESP 25; O2SAT 98
[2024-01-30 06:32] LABS: Add Manual Diff / Slide Review NO; Basophils Absolute Auto 100 /uL (0-100); Basophils Percent Auto 0.5 % (0-2); Eosinophils Absolute Auto 100 /uL (0-450); Eosinophils Percent Auto 0.9 % (2-4); Hematocrit 36.5 % (36-46); Hemoglobin 12.2 g/dL (12.0-16.0); Lymphocytes Absolute Auto 2600 /uL (1100-4500); Lymphocytes Percent Auto 24.8 % (25-40); Mean Corpuscular HGB Conc 33.3 % (30-36); Mean Corpuscular Hemoglobin 28.2 PG (26-34); Mean Corpuscular Volume 84.5 fL (80-100); Monocytes Absolute Auto 900 /uL (0-900); Monocytes Percent Auto 9.1 % (3-14); Neutrophils Absolute Auto 6700 /uL (1500-7000); Neutrophils Percent Auto 64.7 % (50-75); Platelet Count 213 X10^3/uL (150-400); Red Blood Cell Count 4.32 X10^6/uL (4.0-5.2); Red Cell Distribution Width 13.5 % (11.6-14.8); White Blood Cell Count 10.4 X10^3/uL (4.5-11.0)
--- NOTE | 2024-01-30 06:37 | EKG_ITS ---
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
[2024-01-30 06:39] LABS: Albumin 4.6 g/dL (3.5-5.0); HEMOLYSIS < 15 (0-50)
[2024-01-30 06:41] LABS: Alanine Aminotransferase 43 IU/L (<35); Albumin Globulin Ratio 1.5 (1.0-2.8); Alkaline Phosphatase 100 U/L (38-126); Aspartate Aminotransferase 39 IU/L (14-36); BUN Creatinine Ratio 12.5 (6-22); Bilirubin Total 0.4 mg/dL (0.2-1.3); Blood Urea Nitrogen 10 mg/dL (7-17); Calcium 9.3 mg/dL (8.4-10.2); Chloride 110 mmol/L (98-107); Estimated Glomerular Filt Rate > 60 mL/min (>60); Glucose 100 mg/dL (70-100); Potassium 3.8 mmol/L (3.4-5.1); Sodium 139 mmol/L (137-145); Total Protein 7.6 g/dL (6.3-8.2)
[2024-01-30 06:42] LABS: Carbon Dioxide 18 mmol/L (22-32)
[2024-01-30 07:00] VITALS: BP 111/57; PULSE 96; RESP 18; O2SAT 97
[2024-01-30 07:15] LABS: Influenza A - CEPHEID Flu A NEGATIVE (NEGATIVE); Influenza B - CEPHEID Flu B NEGATIVE (NEGATIVE); Respiratory Syncytial Virus Negative (Negative)
[2024-01-30 07:22] LABS: COVID-19 CEPHEID 4-PLEX PCR Negative (Negative)
== END 2024-01-30 07:42 | disposition home or self-care (01) ==
PROVIDERS: Emergency Medicine; Emergency Provider Emergency Medicine; Family Provider Midwife; PCP Midwife
DX: J18.9 Pneumonia, unspecified organism (principal); R10.9 Unspecified abdominal pain; Z87.891 Personal history of nicotine dependence
CPT/HCPCS: 87635; 87400 ×2; 87420; 0241U; 36415; 71046; 80053; 85025; 93005; 99283; 99284

== ENCOUNTER 2024-05-05 01:01 | Emergency (ER) | payer OTHER, SELFPAY ==
[2024-05-05 01:08] VITALS: BP 121/70; PULSE 96; RESP 16; TEMP 37; O2SAT 98; BMI 37.9
--- NOTE | 2024-05-05 01:24 | DI.RAD.S_ITS ---
PROCEDURE: XR KNEE LT 3V INDICATIONS: fall direct on knee TECHNIQUE: 3 views of the knee were acquired. COMPARISON: None. FINDINGS: Bones: No fractures or dislocations. No suspicious bony lesions. Soft tissues: No joint effusion. No suspicious soft tissue calcifications. Anterior knee soft tissue swelling. IMPRESSION: Anterior left knee soft tissue swelling without underlying fracture or dislocation. No substantial joint effusion. If there is persistent clinical concern for occult fracture given adequate mechanism of injury, consider repeat imaging in 10-14 days. Immobilization as clinically indicated. Dictated by: Melchor Albert M.D. on 05/05/2024 at 1:58 Approved by: Melchor Albert M.D. on 05/05/2024 at 1:59
--- NOTE | 2024-05-05 01:50 | ED_ITS ---
HPI - Extremity Injury (Lower) General Chief Complaint: Extremity Injury, Lower Stated Complaint: Left knee injury, felt knee cap dislocate Time Seen by Provider: 05/05/24 01:48 Mode of arrival: Ambulatory History of Present Illness HPI Narrative: Patient is a 24-year-old female presenting today with left knee pain. She reports that she tripped over her son's stool in the bathroom and felt her knee pop in and out. She is able to bear weight but it does hurt she is pain medially. She felt like her knee popped out then popped back in. Reports it is never happened before. No other injury. Related Data Home Medications Medication Instructions Recorded Confirmed albuterol sulfate 90 mcg/actuation 1 - 2 puff inhalation Q4-6H PRN 01/30/24 05/05/24 aerosol inhaler wheezing inhalational spacing device 01/30/24 01/30/24 (Sai Jemima [facility] spacer) Allergies Allergy/AdvReac Type Severity Reaction Status Date / Time No Known Drug Allergies Allergy Verified 07/09/22 14:38 Patient History Medical History Polysubstance abuse Nystagmus Vaginal delivery (~09/30/21) Chronic thoracic back pain Pes planus of both feet Segmental and somatic dysfunction of abdomen and other regions Sacral region somatic dysfunction Pelvic somatic dysfunction Lumbar region somatic dysfunction Upper extremity somatic dysfunction Thoracic region somatic dysfunction Cervical somatic dysfunction Bilateral shoulder pain Low back pain during in third trimester Acute UTI Headache Anemia in preg-unspec Peripheral neuropathy (~2017) Anemia Gonorrhea (~2020) Hypertension (~2017) Substance abuse (~2015) Manic-depression Depression (10/23/15) Anxiety (10/23/15) Migraine without status migrainosus, not intractable (10/23/15) Surgical History Anesthesia History of eye surgery Family History Father Diabetes mellitus Hypertension Depression Family estrangement Mother Mental health problem Depression Brother Depression Anxiety Sister Anxiety Depression Grandfather Cancer of kidney Grandmother Diabetes mellitus Hypertension Hyperlipidemia Grandfather Stomach cancer Alcoholism Grandmother Alcoholism Social History marital status: unmarried,living together details: father will be involved number of children: 1 household members: significant other, family (s/o's parents) and children lives independently: Yes caregiver/support person: Yes housing: house pets and animals: Yes (2 dogs) education level: other (to 11th grade) occupational status: unemployed current occupational exposures/hazards: No special petar needs: No travel history: over 6 months ago seatbelt use: always water heater temp set < 120 deg: Yes working smoke detector in home: Yes fire extinguisher in home: Yes carbon monox detector in home: Yes firearms in home: No do you feel safe at home: Yes Smoking Status: Current every day smoker Tobacco: How many years used: 7 quit status: quit date established (04/17/21) second hand exposure: No alcohol intake: former substance use type: former substance user during the past year weight has: other (baby ~9 months old) well-balanced diet: daily or most days daily servings fruits/ve-4 caffeine: No Type(s) of exercise: walking Smoking Status: Current every day smoker tobacco type: cigarettes and vaping alcohol intake frequency: 0-2 drinks per day Exam Initial Vital Signs Initial Vital Signs: Vital Signs Temperature 98.6 F 05/05/24 01:08 Pulse Rate 96 H 05/05/24 01:08 Respiratory Rate 16 05/05/24 01:08 Blood Pressure 121/70 05/05/24 01:08 Pulse Oximetry 98 05/05/24 01:08 Oxygen Delivery Method Room Air 05/05/24 01:08 GENERAL: Well-appearing, well-nourished and in no acute distress. CARDIOVASCULAR: peripheral pulses in tact, cap refill <2 sec RESPIRATORY: No respiratory distress, speaks in full sentences without difficulty EXTREMITIES: Normal range of motion, no clubbing or edema. Neurovascularly intact Left knee it was stable but tender with valgus stress and negative anterior- posterior drawer distal pedal pulse intact mild swelling able to flex and extend completely NEUROLOGICAL: Cranial nerves II through XII grossly intact. Normal gait and speech. SKIN: Warm, dry, no petechiae, no rashes or lesions. Course Orders Ordered: ED Orders 05/05/24 01:24 XR knee LT 3V Stat Vital Signs Vital signs: Vital Signs - 8 hr 05/05/24 01:08 05/05/24 02:11 Temperature 98.6 F Pulse Rate 96 H 80 Respiratory Rate 16 16 Blood Pressure 121/70 106/64 Pulse Oximetry 98 97 Oxygen Delivery Method Room Air Room Air MDM - Extremity Injury (Lower) Imaging Data Extremity x-ray #1: My Impression: No fracture Radiologist's Impression: PROCEDURE: XR KNEE LT 3V INDICATIONS: fall direct on knee TECHNIQUE: 3 views of the knee were acquired. COMPARISON: None. FINDINGS: Bones: No fractures or dislocations. No suspicious bony lesions. Soft tissues: No joint effusion. No suspicious soft tissue calcifications. Anterior knee soft tissue swelling. IMPRESSION: Anterior left knee soft tissue swelling without underlying fracture or dislocation. No substantial joint effusion. If there is persistent clinical concern for occult fracture given adequate mechanism of injury, consider repeat imaging in 10-14 days. Immobilization as clinically indicated. Dictated by: Melchor Ablert M.D. on 05/05/2024 at 1:58 Approved by: Melchor Albert M.D. on 05/05/2024 at 1:59 [facility] Narrative Medical decision making narrative: Patient is a healthy 24-year-old female who presents today with left knee pain. She was tender medially able to flex and extend completely. X-rays were been reviewed by myself and negative for fracture. At this type supportive care only. Given knee immobilizer Discharge Plan Departure Patient Disposition: Home Clinical Impression: Left knee sprain Instructions: DI for Knee Sprain Activity Restrictions/Additional Instructions: *You have been diagnosed with left knee sprain *What to do: At this time increase activity as tolerated. Consider wearing knee brace while active and possibly while sleeping as well. Elevate and ice often it will likely be sore for a couple of days should start feeling better *Continue to take medications as directed Motrin 600 mg every 6 hours for [id number] pain Tylenol with a g every 6 hours if needed for [id number] pain *Follow up with your primary care provider in 2-3 days or call [phone] *Return to ER if you should have increasing pain swelling numbness or any new, worsening or concerning symptoms Prescriptions: No Action albuterol sulfate 90 mcg/actuation HFA aerosol inhaler 1 - 2 puff inhalation Q4-6H PRN (Reason: wheezing) ([facility]) Sai Onofre [facility] Spacer MISCELLANEOUS Patient Comments: For use with albuterol inhaler. Referrals: Yelitza Bonilla LM [Primary Care Provider] - Stand Alone Forms: Patient Portal/API/Survey
[2024-05-05 02:11] VITALS: BP 106/64; PULSE 80; RESP 16; O2SAT 97
== END 2024-05-05 02:12 | disposition home or self-care (01) ==
PROVIDERS: Emergency Provider Emergency Medicine; Family Provider Midwife; PCP Midwife
DX: S83.92XA Sprain of unspecified site of left knee, initial encounter (principal); W01.10XA Fall on same level from slipping, tripping and stumbling with subsequent striking against unspecified object, initial encounter
CPT/HCPCS: 73562; 99282; 99283

== ENCOUNTER 2024-06-29 17:21 | Emergency (ER) | payer OTHER, SELFPAY ==
[2024-06-29 17:34] VITALS: BP 141/84; PULSE 85; RESP 14; TEMP 36.2; O2SAT 100; BMI 38.7
--- NOTE | 2024-06-29 19:46 | ED_ITS ---
HPI - Wound/Laceration General Chief Complaint: Wound/Laceration Stated Complaint: L Hand Thumb Time Seen by Provider: 06/29/24 19:43 Source: patient, RN notes reviewed and old records reviewed Mode of arrival: Ambulatory Limitations: no limitations History of Present Illness HPI narrative: 24-year-old female history of asthma comes in with complaint of laceration to her left thumb. Was prepping food at work at [employer] she accidentally sliced her some. No loss of sensation she was good range of motion. Patient states no other injuries. Tetanus last updated in 2021. Patient denies any other concerns. Denies any other major medical issues. No known drug allergies. Related Data Home Medications Medication Instructions Recorded Confirmed albuterol sulfate 90 mcg/actuation 1 - 2 puff inhalation Q4-6H PRN 01/30/24 05/05/24 aerosol inhaler wheezing inhalational spacing device 01/30/24 01/30/24 ([employer] Jemima C spacer) Allergies Allergy/AdvReac Type Severity Reaction Status Date / Time No Known Drug Allergies Allergy Verified 06/29/24 17:34 Review of Systems Review of Systems ROS Unobtainable: All systems reviewed & are unremarkable except as noted in HPI and below Patient History Medical History Polysubstance abuse Nystagmus Vaginal delivery (~09/30/21) Chronic thoracic back pain Pes planus of both feet Segmental and somatic dysfunction of abdomen and other regions Sacral region somatic dysfunction Pelvic somatic dysfunction Lumbar region somatic dysfunction Upper extremity somatic dysfunction Thoracic region somatic dysfunction Cervical somatic dysfunction Bilateral shoulder pain Low back pain during in third trimester Acute UTI Headache Anemia in preg-unspec Peripheral neuropathy (~2017) Anemia Gonorrhea (~2020) Hypertension (~2017) Substance abuse (~2015) Manic-depression Depression (10/23/15) Anxiety (10/23/15) Migraine without status migrainosus, not intractable (10/23/15) Surgical History Anesthesia History of eye surgery Family History Father Diabetes mellitus Hypertension Depression Family estrangement Mother Mental health problem Depression Brother Depression Anxiety Sister Anxiety Depression Grandfather Cancer of kidney Grandmother Diabetes mellitus Hypertension Hyperlipidemia Grandfather Stomach cancer Alcoholism Grandmother Alcoholism Social History marital status: unmarried,living together details: father will be involved number of children: 1 household members: significant other, family (s/o's parents) and children lives independently: Yes caregiver/support person: Yes housing: house pets and animals: Yes (2 dogs) education level: other (to 11th grade) occupational status: unemployed current occupational exposures/hazards: No special petar needs: No travel history: over 6 months ago seatbelt use: always water heater temp set < 120 deg: Yes working smoke detector in home: Yes fire extinguisher in home: Yes carbon monox detector in home: Yes firearms in home: No do you feel safe at home: Yes Smoking Status: Current every day smoker Tobacco: How many years used: 7 quit status: quit date established (04/17/21) second hand exposure: No alcohol intake: former substance use type: former substance user during the past year weight has: other (baby ~9 months old) well-balanced diet: daily or most days daily servings fruits/ve-4 caffeine: No Type(s) of exercise: walking Smoking Status: Current every day smoker tobacco type: cigarettes and vaping alcohol intake frequency: 0-2 drinks per day Exam Narrative Exam Narrative: GENERAL: Alert and oriented x three, female in mild distress HEENT: Head normocephalic, atraumatic, EOMI, pupils reactive, face symmetric, moist mucous membranes NECK: Supple, full range of motion CARDIOVASCULAR: Regular rate and rhythm without murmurs, rubs or gallops. RESPIRATORY: Breath sounds equal bilaterally, no wheezes rales or rhonchi. ABDOMEN: Soft, nontender. Normoactive bowel sounds all 4 quadrants. No guarding or rebound, rigidity, no mass EXTREMITIES: Normal range of motion, no clubbing or edema. Neurovascularly intact. Patient has a laceration of her left thumb about part way through the nail although at a lines pretty well and through the pad of the thumb on the left side. Mild gap. Distal ends neurovascularly intact with cap refill less than 2 seconds. Patient was 2+ radial pulse. Cap refill less than 2 seconds in all other 4 fingers. NEUROLOGICAL: Cranial nerves II through XII grossly intact. Moving all extremities SKIN: Warm, dry, no petechiae, no rashes or lesions. Initial Vital Signs Initial Vital Signs: Vital Signs Temperature 97.2 F L 06/29/24 17:34 Pulse Rate 85 06/29/24 17:34 Respiratory Rate 14 06/29/24 17:34 Blood Pressure 141/84 H 06/29/24 17:34 Pulse Oximetry 100 06/29/24 17:34 Oxygen Delivery Method Room Air 06/29/24 17:34 Procedures Laceration Repair Laceration 1: Time of procedure: 20:24 Site: hand (L thumb) Size (cm): 0.75 Description: linear Depth: simple, single layer (thru nail) Local Anesthetic: lidocaine 2% Amount of anesthesia used (mL): 2 Pre-repair: wound explored, irrigated extensively and deep structures intact Skin layer closed with: nylon (patient had dermabond over nail laceration which was well aligned.) Skin layer suture size: 4-0 Number of sutures: 2 Technique: simple, interrupted Course Orders Ordered: Discontinued Medications Lidocaine HCl (Lidocaine 2% Inj Sdv 5ml) 5 ml INJ INTRA-OP ONE Stop: 06/29/24 20:05 Vital Signs Vital signs: Vital Signs - 8 hr 06/29/24 17:34 06/29/24 20:47 Temperature 97.2 F L Pulse Rate 85 72 Respiratory Rate 14 14 Blood Pressure 141/84 H 129/65 Pulse Oximetry 100 97 Oxygen Delivery Method Room Air Room Air MDM - Wound/Laceration MDM Narrative Medical decision making narrative: Patient had laceration of the left thumb repaired here in the department. Patient is neurovascularly intact. Patient had laceration of the pad of them but also through the nail 2 sutures were placed in the pad, the nail was closed with Dermabond was very well aligned. Discharge Plan Departure Patient Disposition: Home Clinical Impression: Laceration of left thumb Instructions: DI for Laceration Repair -- Finger Activity Restrictions/Additional Instructions: Wound Care: Keep wound(s) clean and dry. Wash daily with soap and water only. Do not use over the counter products (alcohol or peroxide)on the wounds unless instructed by a physician, you can use topical triple antibiotic ointment to the affected area in the pad of the thumb. If wound condition worsens (increased/expanding redness, developing fluid blisters, or worsening pain), either contact your doctor for an urgent re- assessment , or return to the Emergency Department. Return to the ED, urgent care, or visit a primary care doctor for removal of sutures in 7-10 days. Return if fever greater than 100.4 Fahrenheit, increased swelling, increasing pain or worsening symptoms such as increased discharge or spreading redness. Prescriptions: No Action albuterol sulfate 90 mcg/actuation HFA aerosol inhaler 1 - 2 puff inhalation Q4-6H PRN (Reason: wheezing) (DME) Sai Onofre [facility] Spacer MISCELLANEOUS Patient Comments: For use with albuterol inhaler. Referrals: Yelitza Bonilla LM [Primary Care Provider] - Stand Alone Forms: Patient Portal/API/Survey, Work Release Note
[2024-06-29 20:47] VITALS: BP 129/65; PULSE 72; RESP 14; O2SAT 97
== END 2024-06-29 20:48 | disposition home or self-care (01) ==
PROVIDERS: Emergency Provider Emergency Medicine; Family Provider Midwife; PCP Midwife
DX: S61.012A Laceration without foreign body of left thumb without damage to nail, initial encounter (principal); W26.0XXA Contact with knife, initial encounter
CPT/HCPCS: 12001; 99281; 99283

== ENCOUNTER 2025-01-22 08:41 | Emergency (ER) | payer SELFPAY ==
[2025-01-22 09:03] VITALS: BP 116/80; PULSE 81; RESP 18; TEMP 36.8; O2SAT 99; BMI 35.8
--- NOTE | 2025-01-22 09:12 | DI.US.S_ITS ---
PROCEDURE: US PELVIC COMPLETE INDICATIONS: excessive bleeding TECHNIQUE: Real-time scanning was performed of the pelvic organs, with image documentation. Additional endovaginal scanning was necessary due to incomplete visualization of the adnexal and endometrial structures by transabdominal scanning. COMPARISON: [facility], , PELVIC COMPLETE, 11/22/2016, 16:24. FINDINGS: Uterus is anteverted and measures 9.3 x 4.5 x 5.5 centimeter. Endometrial thickness 5.9 millimeter. No focal uterine lesion. Cervix is unremarkable. Right ovary measures 2.1 x 4.3 x 2.1 centimeter with volume 9.9 mL. Left ovary measures 3.9 x 2.2 x 1.9 centimeter with volume 8.2 mL. Normal follicles and blood flow bilaterally. No free fluid. IMPRESSION: Normal examination We strive to produce accurate, complete, and clear reports of imaging services. To assist us in improving patient care, this report was composed using standard report templates and voice recognition software. Therefore, it may contain abnormal punctuation, insertions and/or omissions. Occasional wrong-word or sound-alike substitutions may occur. Though we review the report and make efforts to correct it, we do recommend that the report be read carefully in proper context to recognize any text inaccuracies. Dictated by: Jordan Orellana M.D. on 01/22/2025 at 10:28 Approved by: Jordan Orellana M.D. on 01/22/2025 at 10:29
--- NOTE | 2025-01-22 09:26 | ED.FEMALEGU ---
HPI - Female Genitourinary General Chief complaint: Vaginal Bleeding Stated complaint: Bleeding through pad in under an hr Time Seen by Provider: 01/22/25 09:11 Source: patient Mode of arrival: Family Vehicle History of Present Illness HPI Narrative: Patient is a 24-year-old female presenting to [facility] with vaginal bleeding. She reports that she had a regular menstrual cycle couple weeks ago she started spotting this week which was abnormal. She says she is very regular she has a cycle every 27 days lasts for 4 days. However she started spotting and then this morning started bleeding excessively. She has already gone through 2 to 4 pads this morning says he is changing a pad every hour. This started around 7:00 a.m.. She feels like she is having some cramping. She is not sure she could be but she thinks it would be really early. Patient later states that she did take a plan B last week, it has not cause this much bleeding before Related Data Home Medications ?Medication ?Instructions ?Recorded ?Confirmed albuterol sulfate 90 mcg/actuation 1 - 2 puff inhalation Q4-6H PRN 01/30/24 05/05/24 aerosol inhaler wheezing inhalational spacing device 01/30/24 01/30/24 (Sai Jemima [facility] spacer) Allergies Allergy/AdvReac Type Severity Reaction Status Date / Time No Known Drug Allergies Allergy Verified 01/22/25 09:03 Patient History Medical History Polysubstance abuse Nystagmus Vaginal delivery (~09/30/21) Chronic thoracic back pain Pes planus of both feet Segmental and somatic dysfunction of abdomen and other regions Sacral region somatic dysfunction Pelvic somatic dysfunction Lumbar region somatic dysfunction Upper extremity somatic dysfunction Thoracic region somatic dysfunction Cervical somatic dysfunction Bilateral shoulder pain Low back pain during in third trimester Acute UTI Headache Anemia in preg-unspec Peripheral neuropathy (~2017) Anemia Gonorrhea (~2020) Hypertension (~2017) Substance abuse (~2015) Manic-depression Depression (10/23/15) Anxiety (10/23/15) Migraine without status migrainosus, not intractable (10/23/15) Surgical History Anesthesia History of eye surgery Family History Father Diabetes mellitus Hypertension Depression Family estrangement Mother Mental health problem Depression Brother Depression Anxiety Sister Anxiety Depression Grandfather Cancer of kidney Grandmother Diabetes mellitus Hypertension Hyperlipidemia Grandfather Stomach cancer Alcoholism Grandmother Alcoholism tobacco type: cigarettes Exam Initial Vital Signs Initial Vital Signs: Vital Signs Temperature 98.3 F 01/22/25 09:03 Pulse Rate 81 01/22/25 09:03 Respiratory Rate 18 01/22/25 09:03 Blood Pressure 116/80 01/22/25 09:03 Pulse Oximetry 99 01/22/25 09:03 Oxygen Delivery Method Room Air 01/22/25 09:03 GENERAL: Alert very well-appearing 24-year-old and in no acute distress. HEENT: Head atraumatic,EOMI, pupils reactive, face symmetric, moist mucous membranes CARDIOVASCULAR: Regular rate and rhythm without murmurs, rubs or gallops. RESPIRATORY: Breath sounds equal bilaterally, no wheezes rales or rhonchi. ABDOMEN: Soft, nontender. Normoactive bowel sounds all 4 quadrants. No guarding or rebound. EXTREMITIES: Normal range of motion, no clubbing or edema. Neurovascularly intact PELVIC: External genitalia is normal, some vaginal bleeding no excessive clots, no vaginal discharge, no odor, cervical os is open NEUROLOGICAL: Alert and oriented x4.Normal gait and speech. Cranial nerves II through XII grossly intact. SKIN: Warm, dry, no laceration, no petechiae, no rashes or lesions. Course Orders Ordered: ED Orders 01/22/25 09:12 US pelvic complete Stat 01/22/25 09:30 CBC Auto Diff [Complete Blood Count AUTO DIFF] Stat CMP [Comprehensive Metabolic Panel] Stat Lactate (Lactic Acid) Stat PT [Prothrombin Time INR] Stat PTT Partial Thromboplastin Karlo Stat 01/22/25 09:42 Urinalysis and Microscopic Stat Discontinued Medications Ketorolac Tromethamine (Ketorolac 30 Mg/Ml Vial) 15 mg IV NOW ONE Stop: 01/22/25 09:13 Last Admin: 01/22/25 09:30 Dose: 15 mg Documented By: Vital Signs Vital signs: Vital Signs - 8 hr 01/22/25 09:03 01/22/25 12:08 Temperature 98.3 F Pulse Rate 81 70 Respiratory Rate 18 17 Blood Pressure 116/80 126/62 Pulse Oximetry 99 99 Oxygen Delivery Method Room Air Room Air MDM - Female Genitourinary Lab Data 01/22/25 09:30 01/22/25 09:30 Labs: Lab Results 01/22/25 Range/Units 09:30 WBC 9.8 (4.5-11.0) X10^3/uL RBC 4.71 (4.0-5.2) X10^6/uL Hgb 13.7 (12.0-16.0) g/dL Hct 40.2 (36-46) % MCV 85.3 (80-100) fL MCH 29.1 (26-34) PG MCHC 34.1 (30-36) % RDW 14.4 (11.6-14.8) % Plt Count 242 (150-400) X10^3/uL Neut % (Auto) 57.6 (50-75) % Lymph % (Auto) 34.7 (25-40) % Hernando % (Auto) 4.7 (3-14) % Eos % (Auto) 2.2 (2-4) % Baso % (Auto) 0.8 (0-2) % Neut # (Auto) 5700 (9222-6353) /uL Lymph # (Auto) 3400 (0014-8152) /uL Hernando # (Auto) 500 (0-900) /uL Eos # (Auto) 200 (0-450) /uL Baso # (Auto) 100 (0-100) /uL PT 13.0 H (9.4-12.5) SECONDS INR 1.1 (0.9-1.3) APTT 29 (25.1-36.5) SECONDS Sodium 141 (137-145) mmol/L Potassium 3.5 (3.4-5.1) mmol/L Chloride 111 H (98-107) mmol/L Carbon Dioxide 18 L (22-32) mmol/L BUN 11 (7-17) mg/dL Creatinine 0.85 (0.52-1.04) mg/dL Estimated GFR > 60 (>60) mL/min BUN/Creatinine Ratio 12.9 (6-22) Glucose 92 (70-99) mg/dL Lactate 1.0 (0.7-2.1) mmol/L Calcium 9.4 (8.4-10.2) mg/dL Total Bilirubin 1.0 (0.2-1.3) mg/dL AST 26 (14-36) IU/L ALT 27 (<35) IU/L Alkaline Phosphatase 59 (38-126) U/L Total Protein 7.9 (6.3-8.2) g/dL Albumin 4.9 (3.5-5.0) g/dL Globulin 3.0 (1.7-4.1) g/dL Albumin/Globulin Ratio 1.6 (1.0-2.8) Point of Care Testing Test Results Negative Imaging Data US - OB: Radiologist's Impression: PROCEDURE: US PELVIC COMPLETE INDICATIONS: excessive bleeding TECHNIQUE: Real-time scanning was performed of the pelvic organs, with image documentation. Additional endovaginal scanning was necessary due to incomplete visualization of the adnexal and endometrial structures by transabdominal scanning. COMPARISON: [facility], [place], PELVIC COMPLETE, 11/22/2016, 16:24. FINDINGS: Uterus is anteverted and measures 9.3 x 4.5 x 5.5 centimeter. Endometrial thickness 5.9 millimeter. No focal uterine lesion. Cervix is unremarkable. Right ovary measures 2.1 x 4.3 x 2.1 centimeter with volume 9.9 mL. Left ovary measures 3.9 x 2.2 x 1.9 centimeter with volume 8.2 mL. Normal follicles and blood flow bilaterally. No free fluid. IMPRESSION: Normal examination We strive to produce accurate, complete, and clear reports of imaging services. To assist us in improving patient care, this report was composed using standard report templates and voice recognition software. Therefore, it may contain abnormal punctuation, insertions and/or omissions. Occasional wrong-word or sound-alike substitutions may occur. Though we review the report and make efforts to correct it, we do recommend that the report be read carefully in proper context to recognize any text inaccuracies. Dictated by: Jordan Orellana M.D. on 01/22/2025 at 10:28 Approved by: Jordan Orellana M.D. on 01/22/2025 at 10:29 [facility] Narrative Medical decision making narrative: Patient 24-year-old female presenting to [facility] with excessive vaginal bleeding and irregular vaginal bleeding. Vitals are stable. Blood work has been reviewed CBC shows no anemia or leukocytosis CMP is stable chloride is 1011 bicarb is 18 which is very similar to previous CMP 1 year ago no BEATRICE Lactate 1.0 INR 1.1 PTT 20 Urinalysis negative Ultrasound does not show any fibroids or cause of excessive bleeding Patient does remember that she took plan B last week. She is currently not , reports that Toradol has helped her pain. She does have some vaginal bleeding but not excessive. At this time I [facility] or other provider if she would like contraceptives. But I suspect bleeding is from plan B. Discharge Plan Departure Patient Disposition: Home Clinical Impression: Bleeding, uterine, dysfunctional Instructions: DI for Vaginal Bleeding Activity Restrictions/Additional Instructions: *You have been diagnosed with dysfunctional uterine *What to do: At this time I recommend following up with rib cloth knitter or [facility] in or [facility] to . But I do suspect that your bleeding today is probably from plan *Continue to take medications as directed Tylenol Motrin as needed for pain and came *Follow up with your primary care provider in 2-3 days or call [phone] *Return to ER if you should have increased vaginal bleeding more than 2 pads an hour dizziness lightheadedness or increasing pain or any new, worsening or concerning symptoms Prescriptions: No Action albuterol sulfate 90 mcg/actuation HFA aerosol inhaler 1 - 2 puff inhalation Q4-6H PRN (Reason: wheezing) (DME) Sai Onofre [facility] Spacer MISCELLANEOUS Patient Comments: For use with albuterol inhaler. Referrals: Yelitza Bonilla LM [Primary Care Provider, Medical] Stand Alone Forms: Patient Portal/API
[2025-01-22] MEDS: KETOROLAC 30 MG/ML VIAL 15 MG IV (09:30)
[2025-01-22 09:44] LABS: Add Manual Diff / Slide Review NO; Hematocrit 40.2 % (36-46); Hemoglobin 13.7 g/dL (12.0-16.0); Lymphocytes Absolute Auto 3400 /uL (1100-4500); Mean Corpuscular HGB Conc 34.1 % (30-36); Mean Corpuscular Hemoglobin 29.1 PG (26-34); Mean Corpuscular Volume 85.3 fL (80-100); Platelet Count 242 X10^3/uL (150-400)
[2025-01-22 09:49] LABS: INR 1.1 (0.9-1.3); Prothrombin Time 13.0 SECONDS (9.4-12.5)
[2025-01-22 09:52] LABS: PTT Partial Thromboplastin Tim 29 SECONDS (25.1-36.5)
[2025-01-22 09:55] LABS: Albumin 4.9 g/dL (3.5-5.0); Albumin Globulin Ratio 1.6 (1.0-2.8); Alkaline Phosphatase 59 U/L (38-126); Blood Urea Nitrogen 11 mg/dL (7-17); Calcium 9.4 mg/dL (8.4-10.2); Carbon Dioxide 18 mmol/L (22-32); Chloride 111 mmol/L (98-107); Estimated Glomerular Filt Rate > 60 mL/min (>60); Globulin 3.0 g/dL (1.7-4.1); Glucose 92 mg/dL (70-99); HEMOLYSIS < 15 (0-50); Lactate (Lactic Acid) 1.0 mmol/L (0.7-2.1); Potassium 3.5 mmol/L (3.4-5.1); Sodium 141 mmol/L (137-145); Total Protein 7.9 g/dL (6.3-8.2)
[2025-01-22 09:56] LABS: Alanine Aminotransferase 27 IU/L (<35)
[2025-01-22 12:08] VITALS: BP 126/62; PULSE 70; RESP 17; O2SAT 99
== END 2025-01-22 12:08 | disposition home or self-care (01) ==
PROVIDERS: Emergency Provider Emergency Medicine; Family Provider Midwife; PCP Midwife
DX: N93.8 Other specified abnormal uterine and vaginal bleeding (principal)
CPT/HCPCS: 36415; 76830; 76856; 80053; 81025; 83605; 85025; 85610; 85730; 96374; 99284; J1885